=== PATIENT | female | born 1930 | race Caucasian/White ===

== ENCOUNTER 2016-08-31 09:33 | Inpatient (IN) | payer OTHER ==
[~2016-08-31] VITALS: Ht 167.6 cm; Wt 66.5 kg
[2016-08-31] VITALS (7 sets, daily range): BP systolic 100–130; BP diastolic 64–86; PULSE 84–92; TEMP 36.4–36.8; O2SAT 92–94; Ht 167.6 cm; Wt 66.5 kg
[~2016-08-31 09:33] MED LIST: ALBU1AER9 INH; ALEN70TA4 PO; ASPI81TA28 PO; LEVO100T7 PO; MECL1TAB42 PO; METO50TA17 PO; MULT-190 PO; SIMV20TA5 PO; TRIATAB3 PO
[2016-08-31] MEDS ORDERED: SODIUM CHLORIDE 0.9% 1000ML 500 ML IV STA (10:01)
[2016-08-31] MEDS ORDERED: ONDANSETRON INJ 2 MG/ML 2 ML VIAL IV STA (10:01)
[2016-08-31] MEDS ORDERED: OPTIRAY 320 IV PRN (10:15)
[2016-08-31] MEDS ORDERED: WARF-285 PO (10:15)
--- NOTE | 2016-08-31 10:25 | DIAGNOSTIC IMAGING REPORT ---
CHEST ONE VIEW PORTABLE HISTORY: Generalized abdominal pain. COMPARISON: Chest 01/14/2016. FINDINGS: Mild diffuse interstitial thickening persists. Small bilateral pleural effusions and bibasilar densities have progressed. The heart is mildly enlarged. This remains unchanged. No pneumothorax. IMPRESSION: 1. Progression of the small bilateral pleural effusions and nonspecific bibasilar densities. This could represent atelectasis or pneumonia. 2. Cardiomegaly with mild diffuse interstitial thickening. This could represent mild congestive change. Electronically signed by: Matthias Su M.D. 08/31/2016 10:23 AM Dictated Date/Time: 08/31/2016 10:22 AM
[2016-08-31 10:34] LABS: BASO % 0.5 %; BASO ABS # 0.02 K/uL (0-0.2); COMPLETE YES; EOS % 1.8 %; HEMATOCRIT 34.2 % (37-47); LYMPH % 39.1 %; LYMPH ABS # 1.72 K/uL (1.2-3.4); MEAN CELL VOLUME 100.3 fL (80-100); MEAN CORPUSCULAR HEMOGLOBIN 31.1 pg (25-34); MEAN PLATELET VOLUME 10.7 fL (7.4-10.4); MONO % 16.4 %; NEUT % 42.2 %; PLATELET COUNT 125 K/uL (130-400); RED BLOOD COUNT 3.41 M/uL (4.2-5.4)
[2016-08-31 11:00] LABS: URINE APPEARANCE CLEAR (CLEAR); URINE BILIRUBIN NEG (NEG); URINE COLOR YELLOW; URINE EPITHELIAL CELL AUTO >30 /lpf (0-5); URINE NITRITE NEG (NEG); URINE PH 7.5 (4.5-7.5); URINE SPECIFIC GRAVITY 1.014 (1.000-1.030); UROBILINOGEN NEG (NEG); ZZUR CULT IF INDIC CLEAN CATCH YES
[2016-08-31 11:01] LABS: BUN/CREATININE RATIO 22.3 (10-20); CALCIUM 8.7 mg/dl (8.5-10.1); CREATININE 0.8 mg/dl (0.60-1.20); POTASSIUM 3.9 mmol/L (3.5-5.1)
[2016-08-31 11:03] LABS: MANUAL MICROSCOPIC REQUIRED? NO; REVIEW REQ? NO; SULFASALICYLIC ACID POS (NEG)
[2016-08-31 11:04] LABS: ALB/GLOB RATIO 0.8 (0.9-2)
[2016-08-31 11:15] LABS: THYROID STIMULATING HORMONE 0.342 uIu/ml (0.300-4.500)
--- NOTE | 2016-08-31 12:49 | DIAGNOSTIC IMAGING REPORT ---
CT SCAN OF THE ABDOMEN AND PELVIS WITH IV CONTRAST CLINICAL HISTORY: Epigastric abdominal pain. Bloating. COMPARISON STUDY: Abdominal CT dated 06/26/2011. TECHNIQUE: Following the IV administration of 93 cc of Optiray 320, CT scan of the abdomen and pelvis is performed from the lung bases to the proximal femora. Images are reviewed in the axial, sagittal, and coronal planes. IV contrast was administered without complication. Automated dose control exposure was utilized. CT DOSE: 306.14 mGy.cm FINDINGS: Lung bases: The heart is mildly enlarged and without pericardial effusion. The coronary arteries are densely calcified. There are small pleural effusions, right larger than left with bibasilar consolidation. Intralobular septal thickening is noted in the lower lobes. Liver: The contrast-enhanced liver is normal in size and contour. The liver is heterogeneous in attenuation. There is mild central intrahepatic biliary ductal dilatation. The hepatic veins and portal veins are patent. Hepatic periportal edema is noted. Gallbladder: Surgically absent noting clips in the gallbladder fossa. Spleen: Spleen is normal in size and attenuation. There is trace chronic subcapsular fluid around the spleen, likely representing a chronic subcapsular hematoma. This measures at most of the 5 mm in thickness and was also present on the 2012 examination. Pancreas: Atrophic and grossly unremarkable. Adrenal glands: Unremarkable. Kidneys: The contrast enhanced kidneys are atrophic and without hydronephrosis. The kidneys enhance symmetrically. A 9 mm cyst is noted in the right lower pole. Abdominal vasculature: The abdominal aorta is normal in course and caliber noting moderate atherosclerotic calcification. Bowel: The small bowel and colon are normal in course and caliber. There is mild to moderate fecal retention seen in the right colon. The appendix is normal in appearance. Peritoneum: There is no intraperitoneal free air or abdominal ascites. There is a small fat-containing local hernia. Lymphadenopathy: None. Pelvic viscera: The bladder, uterus, and adnexa are normal as visualized. Skeletal structures: The skeletal structures are osteopenic. No lytic or blastic lesions are seen. IMPRESSION: 1. There are no acute infectious or inflammatory findings in the abdomen or pelvis. 2. Small pleural effusions, right larger than left with bibasilar consolidation. This likely represents atelectasis. Correlate clinically for evidence of superimposed pneumonia. 3. Mild cardiac enlargement. Intralobular septal thickening is seen in the lower lobes and suggests congestive failure. Clinical correlation will be required. 4. Trace chronic subcapsular splenic fluid is unchanged from 2012. This represents a tiny chronic subcapsular hematoma. 5. The liver appears heterogeneous and there is mild periportal edema, likely related to volume status. 6. Additional findings as above. Electronically signed by: Margarito Hsu M.D. 08/31/2016 12:47 PM Dictated Date/Time: 08/31/2016 12:37 PM
[2016-08-31] MEDS ORDERED: FUROSEMIDE 40 MG/4 ML VIAL IV STA (13:14)
--- NOTE | 2016-08-31 13:46 | EMERGENCY ROOM VISIT NOTE ---
History Report prepared by Dora: Issa Graham Under the Supervision of: Dr. Margarito Espitia M.D. First contact with patient: 09:53 Chief Complaint: URINARY SYMPTOMS Stated Complaint: PAIN IN UPPER ABDOMINAL, TROUBLE URINATING History of Present Illness The patient is an 85 year old female who presents to the Emergency Room with complaints of persistent abdominal bloating for the past week. The patient also notes discomfort in the lower abdomen but denies actual pain. The discomfort does not radiate to the back. She notes that she has been having trouble urinating and only urinates small volumes. The patient denies burning or pain with urination. She denies history of urinary retention. The patient also denies fevers, nausea, or vomiting. She has never been diagnosed with bowel obstruction and has never had surgery of the abdomen. She takes laxatives / stool softeners for constipation. The patient has been eating and drinking okay. The patient feels short of breath when she lays down. Source of History: patient Onset: one week ago Position: abdomen Quality: other (bloating) Timing: other (persistent) Associated Symptoms: + abdominal pain (discomfort), + urinary symptoms, No fevers, No nausea, No vomiting Review of Systems See HPI for pertinent positives & negatives. A total of 10 systems reviewed and were otherwise negative. Past Medical & Surgical Medical Problems: (1) AML (acute myeloid leukemia) in remission (2) Anxiety (3) Asthma, mild intermittent (4) Atrial fibrillation (5) CKD (chronic kidney disease), stage III (6) GERD (gastroesophageal reflux disease) (7) HLD (hyperlipidemia) (8) HTN (hypertension) (9) Hypothyroidism (10) Osteoporosis Surgical Problems: (1) History of cataract surgery (2) S/P cholecystectomy Family History FH: CAD (coronary artery disease) Social History Smoking Status: Never Smoker Alcohol Use: none Marital Status: Occupation Status: retired Current/Historical Medications Scheduled Levothyroxine Sodium (Levothyroxine Sodium), 100 MCG PO QAM Metoprolol Tartrate (Metoprolol Tartrate), 50 MG PO BID Ocuvite Preservision (Ocuvite Preservision), 1 TAB PO BID Simvastatin (Zocor), 20 MG PO QPM Triamterene/Hctz (Triamterene/Hctz 37.5-25MG), 1 TAB PO DAILY Warfarin Sodium (Warfarin Sodium), 3 MG PO UD Warfarin Sodium (Coumadin), 1.5 MG PO UD Allergies Coded Allergies: No Known Allergies (Verified , 08/31/16) Physical Exam Vital Signs Date Time Temp Pulse Resp B/P Pulse Ox O2 Delivery O2 Flow Rate FiO2 08/31/16 13:13 125/82 08/31/16 11:15 115/80 08/31/16 09:40 36.3 95 18 118/76 94 Room Air Physical Exam GENERAL: Patient is in no acute distress. HEENT: No acute trauma, normocephalic atraumatic, mucous membranes moist, no nasal congestion, no scleral icterus. NECK: No stridor, no adenopathy, no meningismus, trachea is midline. LUNGS: Crackles at both lung bases. No wheezing. No respiratory distress. HEART: Irregular rhythm, no murmurs, rate is normal. ABDOMEN: Soft, tender in the epigastrium, mildly distended, bowel sounds positive, no hernias, no peritonitis. No obvious bladder distention. EXTREMITIES: No cyanosis or edema, full range of motion of all the joints without pain or difficulty, no signs for acute trauma. NEUROLOGIC: Oriented x 3, no acute motor or sensory deficits, no focal weakness. SKIN: No rash, no jaundice, no diaphoresis. Medical Decision & Procedures ER Provider Diagnostic Interpretation: Bladder scan showed just over 80 CCs over fluid: No significant retention. X ray results and stated below per my interpretation and radiologist interpretation. Other radiology results and stated below per my review and radiologist interpretation: CHEST ONE VIEW PORTABLE HISTORY: Generalized abdominal pain. COMPARISON: Chest 01/14/2016. FINDINGS: Mild diffuse interstitial thickening persists. Small bilateral pleural effusions and bibasilar densities have progressed. The heart is mildly enlarged. This remains unchanged. No pneumothorax. IMPRESSION: 1. Progression of the small bilateral pleural effusions and nonspecific bibasilar densities. This could represent atelectasis or pneumonia. 2. Cardiomegaly with mild diffuse interstitial thickening. This could represent mild congestive change. Electronically signed by: Matthias Su M.D. 08/31/2016 10:23 AM Dictated Date/Time: 08/31/2016 10:[address] SCAN OF THE ABDOMEN AND PELVIS WITH IV CONTRAST CLINICAL HISTORY: Epigastric abdominal pain. Bloating. COMPARISON STUDY: Abdominal CT dated 06/26/2011. TECHNIQUE: Following the IV administration of 93 cc of Optiray 320, CT scan of the abdomen and pelvis is performed from the lung bases to the proximal femora. Images are reviewed in the axial, sagittal, and coronal planes. IV contrast was administered without complication. Automated dose control exposure was utilized. CT DOSE: 306.14 mGy.cm FINDINGS: Lung bases: The heart is mildly enlarged and without pericardial effusion. The coronary arteries are densely calcified. There are small pleural effusions, right larger than left with bibasilar consolidation. Intralobular septal thickening is noted in the lower lobes. Liver: The contrast-enhanced liver is normal in size and contour. The liver is heterogeneous in attenuation. There is mild central intrahepatic biliary ductal dilatation. The hepatic veins and portal veins are patent. Hepatic periportal edema is noted. Gallbladder: Surgically absent noting clips in the gallbladder fossa. Spleen: Spleen is normal in size and attenuation. There is trace chronic subcapsular fluid around the spleen, likely representing a chronic subcapsular hematoma. This measures at most of the 5 mm in thickness and was also present on the 2012 examination. Pancreas: Atrophic and grossly unremarkable. Adrenal glands: Unremarkable. Kidneys: The contrast enhanced kidneys are atrophic and without hydronephrosis. The kidneys enhance symmetrically. A 9 mm cyst is noted in the right lower pole. Abdominal vasculature: The abdominal aorta is normal in course and caliber noting moderate atherosclerotic calcification. Bowel: The small bowel and colon are normal in course and caliber. There is mild to moderate fecal retention seen in the right colon. The appendix is normal in appearance. Peritoneum: There is no intraperitoneal free air or abdominal ascites. There is a small fat-containing local hernia. Lymphadenopathy: None. Pelvic viscera: The bladder, uterus, and adnexa are normal as visualized. Skeletal structures: The skeletal structures are osteopenic. No lytic or blastic lesions are seen. IMPRESSION: 1. There are no acute infectious or inflammatory findings in the abdomen or pelvis. 2. Small pleural effusions, right larger than left with bibasilar consolidation. This likely represents atelectasis. Correlate clinically for evidence of superimposed pneumonia. 3. Mild cardiac enlargement. Intralobular septal thickening is seen in the lower lobes and suggests congestive failure. Clinical correlation will be required. 4. Trace chronic subcapsular splenic fluid is unchanged from 2012. This represents a tiny chronic subcapsular hematoma. 5. The liver appears heterogeneous and there is mild periportal edema, likely related to volume status. 6. Additional findings as above. Electronically signed by: Margarito Hsu M.D. 08/31/2016 12:47 PM Dictated Date/Time: 08/31/2016 12:37 PM Laboratory Results 08/31/16 10:18 Red Blood Count 3.41, Mean Corpuscular Volume 100.3, Mean Corpuscular Hemoglobin 31.1, Mean Corpuscular Hemoglobin Concent 31.0, Mean Platelet Volume 10.7, Neutrophils (%) (Auto) 42.2, Lymphocytes (%) (Auto) 39.1, Monocytes (%) ( Auto) 16.4, Eosinophils (%) (Auto) 1.8, Basophils (%) (Auto) 0.5, Neutrophils # (Auto) 1.86, Lymphocytes # (Auto) 1.72, Monocytes # (Auto) 0.72, Eosinophils # ( Auto) 0.08, Basophils # (Auto) 0.02 08/31/16 10:18 Test 08/31/16 10:18 White Blood Count 4.40 K/uL (4.8-10.8) Red Blood Count 3.41 M/uL (4.2-5.4) Hemoglobin 10.6 g/dL (12.0-16.0) Hematocrit 34.2 % (37-47) Mean Corpuscular Volume 100.3 fL (80-100) Mean Corpuscular Hemoglobin 31.1 pg (25-34) Mean Corpuscular Hemoglobin Concent 31.0 g/dl (32-36) Platelet Count 125 K/uL (130-400) Mean Platelet Volume 10.7 fL (7.4-10.4) Neutrophils (%) (Auto) 42.2 % Lymphocytes (%) (Auto) 39.1 % Monocytes (%) (Auto) 16.4 % Eosinophils (%) (Auto) 1.8 % Basophils (%) (Auto) 0.5 % Neutrophils # (Auto) 1.86 K/uL (1.4-6.5) Lymphocytes # (Auto) 1.72 K/uL (1.2-3.4) Monocytes # (Auto) 0.72 K/uL (0.11-0.59) Eosinophils # (Auto) 0.08 K/uL (0-0.5) Basophils # (Auto) 0.02 K/uL (0-0.2) RDW Standard Deviation 52.1 fL (36.4-46.3) RDW Coefficient of Variation 14.2 % (11.5-14.5) Immature Granulocyte % (Auto) 0.0 % Immature Granulocyte # (Auto) 0.00 K/uL (0.00-0.02) Prothrombin Time 21.9 SECONDS (9.0-12.0) Prothromb Time International Ratio 2.0 (0.9-1.1) Activated Partial Thromboplast Time 38.9 SECONDS (21.0-31.0) Partial Thromboplastin Ratio 1.5 Urine Color YELLOW Urine Appearance CLEAR (CLEAR) Urine pH 7.5 (4.5-7.5) Urine Specific Elkins 1.014 (1.000-1.030) Urine Protein TRACE (NEG) Urine Glucose (UA) NEG (NEG) Urine Ketones NEG (NEG) Urine Occult Blood NEG (NEG) Urine Nitrite NEG (NEG) Urine Bilirubin NEG (NEG) Urine Urobilinogen NEG (NEG) Urine Leukocyte Esterase LARGE (NEG) Urine WBC (Auto) 10-30 /hpf (0-5) Urine RBC (Auto) 0-4 /hpf (0-4) Urine Hyaline Casts (Auto) 1-5 /lpf (0-5) Urine Epithelial Cells (Auto) >30 /lpf (0-5) Urine Bacteria (Auto) NEG (NEG) Anion Gap 7.0 mmol/L (3-11) Est Creatinine Clear Calc Drug Dose 47.3 ml/min Estimated GFR () 76.8 Estimated GFR (Non- 66.3 BUN/Creatinine Ratio 22.3 (10-20) Calcium Level 8.7 mg/dl (8.5-10.1) Total Bilirubin 0.5 mg/dl (0.2-1) Aspartate Amino Transf (AST/SGOT) 20 U/L (15-37) Alanine Aminotransferase (ALT/SGPT) 18 U/L (12-78) Alkaline Phosphatase 88 U/L (45-117) Pro-B-Type Natriuretic Peptide 3078 pg/ml (0-1800) Total Protein 7.1 gm/dl (6.4-8.2) Albumin 3.1 gm/dl (3.4-5.0) Globulin 4.0 gm/dl (2.5-4.0) Albumin/Globulin Ratio 0.8 (0.9-2) Lipase 233 U/L (73-393) Thyroid Stimulating Hormone (TSH) 0.342 uIu/ml (0.300-4.500) Free Thyroxine 1.61 ng/dl (0.80-1.60) Laboratory results reviewed by me. Medications Administered Medications (Trade) Dose Ordered Sig/Deirdre Route Start Time Stop Time Status Last Admin Dose Admin Sodium Chloride (Nss 1000ml) 500 ml @ 999 mls/hr Q31M STAT IV 08/31/16 10:01 08/31/16 10:31 DC 08/31/16 10:27 999 MLS/HR Ondansetron HCl (Zofran Inj) 4 mg NOW STAT IV 08/31/16 10:01 08/31/16 10:04 DC 08/31/16 10:25 4 MG Furosemide (Lasix Inj) 20 mg NOW STAT IV 08/31/16 13:14 08/31/16 13:15 DC 08/31/16 14:09 20 MG ECG Indication: abdominal pain Rate (beats per minute): 84 Rhythm: atrial fibrillation Findings: nonspecific-ST abn, no acute ischemic change, no ectopy Comparison ECG Date: 2015 Change: no significant change ED Course 0958: The patient was evaluated in room B3b. A complete history and physical exam was performed. 1001: Zofran 4 mg IV, NSS 500 ml @ 999 mls/hr. 1020: Bladder scan was obtained. 1312: Updated the patient. She will get some Lasix. 1314: Lasix 20 mg IV. 1324: Discussed the case with KENZIE Holm, [facility] Hospitalist. The patient will be evaluated. Medical Decision Differential diagnosis includes urinary retention, UTI, diverticulitis, pancreatitis, appendicitis, biliary colic, pneumonia, constipation, bowel obstruction. There is no leukocytosis, in fact, the white count was slightly low-she has a history of the same. She is also mildly anemic by our testing. No significant electrolyte abnormality or kidney failure. There was no hepatitis. INR was elevated consistent with someone using Coumadin. Thyroid laboratories are consistent with someone using thyroid medication. Bladder scan did not show any significant urinary retention. Urinalysis shows contamination, no obvious infection. Urine culture is pending. Chest film shows bilateral lower lung congestion and what appears to be CHF. No free air or pneumothorax noted. BNP is elevated consistent with fluid overload/CHF. EKG shows A. fib, no acute ischemia. Cardiac enzyme testing times one is not consistent with acute cardiac injury. Abdominal and pelvis CT shows evidence for fluid overload, there was no evidence for bowel obstruction or for any acute surgical process. The patient initially received a small amount of IV saline. With the findings of CHF, she was given IV Lasix. She received IV Zofran for nausea. The patient presents with bloating and difficulty with urination. She feels short of breath to lie down. She appears to be in new onset CHF. Laboratories and imaging suggests heart failure. I did speak with the patient and case management. I talked to the on-call hospitalist. Further workup/admission/observation is warranted. Consults Time Called: 1315 Consulting Phys[facility] Returned Call: [phone]: Discussed the case with KENZIE Holm [facility] The patient will be evaluated. Impression Primary Impression: CHF (congestive heart failure) Additional Impressions: SOB (shortness of breath) Abdominal distension Scribe Attestation The scribe's documentation has been prepared under my direction and personally reviewed by me in its entirety. I confirm that the note above accurately reflects all work, treatment, procedures, and medical decision making performed by me. Departure Information Dispostion Being Evaluated By Hospitalist Referrals Marino Vizcaino M.D. (PCP) Patient Instructions My [facility] Problem Qualifiers
[2016-08-31 14:07] LABS: PARTIAL THROMBOPLASTIN RATIO 1.5; PROTHROMBIN TIME (PATIENT) 21.9 SECONDS (9.0-12.0)
[2016-08-31] MEDS ORDERED: NITROGLYCERIN 0.4 MG SL PER TAB CHARGE SL PRN (14:15)
[2016-08-31] MEDS ORDERED: ONDANSETRON INJ 2 MG/ML 2 ML VIAL IV PRN (14:15)
[2016-08-31] MEDS ORDERED: TRIATAB3 PO (14:21)
[2016-08-31] MEDS ORDERED: WARF5TAB90 PO (14:21)
[2016-08-31] MEDS ORDERED: SIMV40TA4 PO (14:21)
[2016-08-31] MEDS ORDERED: METOPROLOL TARTRATE 50 MG TAB PO ONE (16:00)
[2016-08-31] MEDS: WARFARIN SOD 3 MG TAB PO SCH (16:59)
--- NOTE | 2016-08-31 17:36 | History and Physical ---
History & Physical Date & Time of Service: Aug 31, 2016 ~ 14:00 Chief Complaint: Abdominal Distention, Trouble Urinating, Shortness of Breath Primary Care Physician: Marino Vizcaino M.D. History of Present Illness 85 year old female who presents to the ER with abdominal distention, trouble urination, and shortness of breath. Patient reports her symptoms started about one week ago. She reports increasing abdominal distention, lower extremity edema , and shortness of breath. She reports orthopnea. Feels like the shortness of breath is coming from her abdomen pushing up into her chest. She has chronic lower extremity edema which she feels is a little worse than normal. No chest pain or palpitations. She denies lightheadedness, dizziness, diaphoresis, and syncope. No cough or sputum production. She reports difficulty urinating. She feels like she needs to go often however is only dribbling. She denies dysuria. No fever or chills. She denies abdominal pain, nausea, vomiting, or diarrhea. In the ER, patient's vitals are stable. In the ER, CXR shows small BL pleural effusions and mild congestive change. CT abd/pelvis did not show any acute abdominal findings but did show the effusions and congestion noted on CXR. Patient was given Lasix 20mg IV. 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 (2) Anxiety Status: Chronic (3) Asthma, mild intermittent Status: Chronic (4) Atrial fibrillation Status: Chronic (5) CKD (chronic kidney disease), stage III Status: Chronic (6) GERD (gastroesophageal reflux disease) Status: Chronic (7) HLD (hyperlipidemia) Status: Chronic (8) HTN (hypertension) Status: Chronic (9) Hypothyroidism Status: Chronic (10) Osteoporosis Status: Chronic Surgical Problems: (1) History of cataract surgery Status: Chronic (2) S/P cholecystectomy Status: Chronic Family History non contributory due to patient's advanced age Social History Smoking Status: Never Smoker Alcohol Use: none Immunizations History of Influenza Vaccine: Yes Influenza Vaccine Date: Mar 16, 2016 History of Tetanus Vaccine?: Yes Tetanus Immunization Date: Apr 01, 2011 History of Pneumococcal: Yes Pneumococcal Date: Jan 10, 2015 Multi-Drug Resistant Organisms History of MDRO: No Allergies Coded Allergies: No Known Allergies (Verified , 08/31/16) Home Medications Scheduled Levothyroxine Sodium (Levothyroxine Sodium), 100 MCG PO QAM Metoprolol Tartrate (Metoprolol Tartrate), 50 MG PO BID Ocuvite Preservision (Ocuvite Preservision), 1 TAB PO BID Simvastatin (Zocor), 20 MG PO QPM Triamterene/Hctz (Triamterene/Hctz 37.5-25MG), 1 TAB PO DAILY Warfarin Sodium (Warfarin Sodium), 3 MG PO UD Warfarin Sodium (Coumadin), 1.5 MG PO UD Review of Systems 10 point review of systems was completed with the pertinent positives and negatives noted per the HPI Physical Exam Vital Signs Date Time Temp Pulse Resp B/P Pulse Ox O2 Delivery O2 Flow Rate FiO2 08/31/16 15:10 126/74 08/31/16 14:10 123/75 08/31/16 13:13 125/82 08/31/16 11:15 115/80 08/31/16 09:40 36.3 95 18 118/76 94 Room Air General Appearance: + mild distress (dyspnea with minimal exertion ) Head: normocephalic Eyes: normal inspection ENT: hearing grossly normal Neck: supple, no JVD Respiratory/Chest: no respiratory distress, + crackles (right base) Cardiovascular: + irregularly irregular (rate controlled), + pertinent finding (trace edema BLLE ) Abdomen/GI: normal bowel sounds, non tender, soft, + distended Extremities/Musculoskelatal: normal inspection, no calf tenderness Neurologic/Psych: no motor/sensory deficits, alert, normal mood/affect, oriented x 3 Skin: normal color, warm/dry Diagnostics Laboratory Results Results Past 24 Hours Test 08/31/16 10:18 08/31/16 16:00 Range/Units White Blood Count 4.40 4.8-10.8 K/uL Red Blood Count 3.41 4.2-5.4 M/uL Hemoglobin 10.6 12.0-16.0 g/dL Hematocrit 34.2 37-47 % Mean Corpuscular Volume 100.3 80-100 fL Mean Corpuscular Hemoglobin 31.1 25-34 pg Mean Corpuscular Hemoglobin Concent 31.0 32-36 g/dl Platelet Count 125 130-400 K/uL Mean Platelet Volume 10.7 7.4-10.4 fL Neutrophils (%) (Auto) 42.2 % Lymphocytes (%) (Auto) 39.1 % Monocytes (%) (Auto) 16.4 % Eosinophils (%) (Auto) 1.8 % Basophils (%) (Auto) 0.5 % Neutrophils # (Auto) 1.86 1.4-6.5 K/uL Lymphocytes # (Auto) 1.72 1.2-3.4 K/uL Monocytes # (Auto) 0.72 0.11-0.59 K/uL Eosinophils # (Auto) 0.08 0-0.5 K/uL Basophils # (Auto) 0.02 0-0.2 K/uL RDW Standard Deviation 52.1 36.4-46.3 fL RDW Coefficient of Variation 14.2 11.5-14.5 % Immature Granulocyte % (Auto) 0.0 % Immature Granulocyte # (Auto) 0.00 0.00-0.02 K/uL Prothrombin Time 21.9 9.0-12.0 SECONDS Prothromb Time International Ratio 2.0 0.9-1.1 Activated Partial Thromboplast Time 38.9 21.0-31.0 SECONDS Partial Thromboplastin Ratio 1.5 Urine Color YELLOW Urine Appearance CLEAR CLEAR Urine pH 7.5 4.5-7.5 Urine Specific [place] 1.014 1.000-1.030 Urine Protein TRACE NEG Urine Glucose (UA) NEG NEG Urine Ketones NEG NEG Urine Occult Blood NEG NEG Urine Nitrite NEG NEG Urine Bilirubin NEG NEG Urine Urobilinogen NEG NEG Urine Leukocyte Esterase LARGE NEG Urine WBC (Auto) 10-30 0-5 /hpf Urine RBC (Auto) 0-4 0-4 /hpf Urine Hyaline Casts (Auto) 1-5 0-5 /lpf Urine Epithelial Cells (Auto) >30 0-5 /lpf Urine Bacteria (Auto) NEG NEG Sodium Level 144 136-145 mmol/L Potassium Level 3.9 3.5-5.1 mmol/L Chloride Level 108 98-107 mmol/L Carbon Dioxide Level 29 21-32 mmol/L Anion Gap 7.0 3-11 mmol/L Blood Urea Nitrogen 18 7-18 mg/dl Creatinine 0.80 0.60-1.20 mg/dl Est Creatinine Clear Calc Drug Dose 47.3 ml/min Estimated GFR () 76.8 Estimated GFR (Non- 66.3 BUN/Creatinine Ratio 22.3 10-20 Random Glucose 104 70-99 mg/dl Calcium Level 8.7 8.5-10.1 mg/dl Total Bilirubin 0.5 0.2-1 mg/dl Aspartate Amino Transf (AST/SGOT) 20 15-37 U/L Alanine Aminotransferase (ALT/SGPT) 18 12-78 U/L Alkaline Phosphatase 88 45-117 U/L Troponin I < 0.015 0-0.045 ng/ml Pro-B-Type Natriuretic Peptide 3078 0-1800 pg/ml Total Protein 7.1 6.4-8.2 gm/dl Albumin 3.1 3.4-5.0 gm/dl Globulin 4.0 2.5-4.0 gm/dl Albumin/Globulin Ratio 0.8 0.9-2 Lipase 233 73-393 U/L Thyroid Stimulating Hormone (TSH) 0.342 0.300-4.500 uIu/ml Free Thyroxine 1.61 0.80-1.60 ng/dl Microbiology Results 08/31/16 Urine Culture, Received Pending Diagnostic Radiology CXR IMPRESSION: 1. Progression of the small bilateral pleural effusions and nonspecific bibasilar densities. This could represent atelectasis or pneumonia. 2. Cardiomegaly with mild diffuse interstitial thickening. This could represent mild congestive change. CT ABD/PELVIS IMPRESSION: 1. There are no acute infectious or inflammatory findings in the abdomen or pelvis. 2. Small pleural effusions, right larger than left with bibasilar consolidation. This likely represents atelectasis. Correlate clinically for evidence of superimposed pneumonia. 3. Mild cardiac enlargement. Intralobular septal thickening is seen in the lower lobes and suggests congestive failure. Clinical correlation will be required. 4. Trace chronic subcapsular splenic fluid is unchanged from 2012. This represents a tiny chronic subcapsular hematoma. 5. The liver appears heterogeneous and there is mild periportal edema, likely related to volume status. 6. Additional findings as above. Impression Assessment and Plan SHORTNESS OF BREATH, VOLUME OVERLOAD, ACUTE CHF - admit to tele - patient presenting with increasing abdominal distention, lower extremity edema , shortness of breath, and difficulty urinating; CXR and CT abd/pelvis showing small BL pleural effusions and congestive failure, ? pneumonia however patient without cough, fever, or leukocytosis; CT negative for acute abdominal findings - saturating well on room air - hx of atrial fibrillation - rate controlled, no reports of chest pain or palpitations - echo 01/2016 - EF 50-55%, moderate MR, mild-mod TR - EKG without acute ST changes, initial troponin negative; continue to cycle cardiac enzymes, check resting echo - s/p Lasix 20mg IV in ED; will reevaluate patient tonight and order further diuresis as appropriate - I/Os, daily standing weights, low Na+ diet DIFFICULTY URINATING - patient reports urinary frequency and dribbling - PVR in ER ~ 80ml so no retention - U/A not highly suggestive of UTI - continue to monitor - consider urology consult ATRIAL FIBRILLATION - rate controlled on beta lei, will continue - on Coumadin, INR 2.0; continue Coumadin per home dosing HTN - BP controlled, continue metoprolol - was on Maxzide however patient reports she quit taking on her own - unsure of when; consider resumption pending plan for diuretics and BP CKD STAGE III - baseline creat ~ 0.9 - creat noted to be 0.8 today - monitor closely with diuresis DVT PROPHYLAXIS - on Coumadin with therapeutic INR CODE STATUS - Patient is a full code as per my discussion with her. DISPO - In my clinical judgment this beneficiary meets acute admission criteria, established by [facility], that includes being hospitalized through two midnights. VTE Prophylaxis VTE Risk Assessment Done? Y/N: Yes Risk Level: Moderate Given or contraindicated: Warfarin (Coumadin) Note ATTENDING ADDENDUM Record reviewed. Patient interviewed and examined. Care coordinated with KENZIE Holm. Please refer to her documentation for patient's history. Briefly, 85 YO female with history of chronic atrial fibrillation managed with rate control and warfarin, hypertension, and other problems. Presented to ED with increasing dyspnea on exertion and abdominal bloating. No chest pain. EXAM: General- no distress VS- as noted HEENT- PERRL, EOMI, anicteric Neck- + JVD Lungs- few bibasilar rales Heart- distant heart sounds, irregular, rate controlled, no definite murmur or gallop appreciated Abdomen- + BS, slightly distended, soft, nontender Extremities- 1+ pretibial edema Neuro- alert, oriented DATA: Troponin I < 0.015. BNP 3078. Other lab studies as noted. Chest x-ray reviewed by undersigned and interpreted by Radiology- cardiomegaly, pulmonary vascular congestion, small pleural effusions. CT abdomen + pelvis per Radiology- no ascites; no acute intra-abdominal process. EKG performed at 10:37 reviewed and demonstrated AF at 84 / minute, low voltage QRS, poor R-wave progression, inferior T-wave flattening, biphasic T-waves V2-3 , minimal ST depression V3-V5. ASSESSMENT AND PLAN: CHF Apparent new onset CHF per exam, BNP, chest filmes. Cardiovascular history notable for chronic AF and hypertension. Echo 11/14/15 demonstrated normal LV wall motion and function with LVEF 55-60%, aortic sclerosis without stenosis, moderate MR. Received IV furosemide in ED with brisk diuresis. Follow exam, weights, labs. Titrate diuretics. Check f/u TTE. Consult Cardiology. Please refer to CLEVE Huang's documentation for discussion of other issues. Zechariah Benson MD .
[2016-08-31] MEDS: ACETAMINOPHEN 325 MG TAB PO PRN (19:48)
[2016-08-31] MEDS: CEROVITE ADV FORMULA TAB PO SCH (20:54)
[2016-08-31] MEDS: METOPROLOL TARTRATE 50 MG TAB PO SCH (20:55)
[2016-09-01] VITALS (8 sets, daily range): BP systolic 110–126; BP diastolic 68–80; PULSE 72–88; TEMP 36.8–36.9; O2SAT 0–94
[2016-09-01] MEDS: LEVOTHYROXINE 100 MCG TAB PO SCH (05:59)
[2016-09-01 07:20] LABS: HEMATOCRIT 30.6 % (37-47); MEAN CELL VOLUME 97.5 fL (80-100); MEAN CORPUSCULAR HEMOGLOBIN 30.9 pg (25-34); MEAN CORPUSCULAR HGB CONC 31.7 g/dl (32-36); MEAN PLATELET VOLUME 10.9 fL (7.4-10.4); PLATELET COUNT 117 K/uL (130-400); RED BLOOD COUNT 3.14 M/uL (4.2-5.4); WHITE BLOOD COUNT 4.42 K/uL (4.8-10.8)
[2016-09-01 07:31] LABS: INR 2.2 (0.9-1.1); PROTHROMBIN TIME (PATIENT) 23.8 SECONDS (9.0-12.0)
[2016-09-01 07:47] LABS: BUN/CREATININE RATIO 18.3 (10-20); CALCIUM 8.9 mg/dl (8.5-10.1); CREATININE 0.88 mg/dl (0.60-1.20); POTASSIUM 3.9 mmol/L (3.5-5.1)
[2016-09-01] MEDS: METOPROLOL TARTRATE 50 MG TAB PO SCH ×2 (08:03→20:44)
[2016-09-01] MEDS: CEROVITE ADV FORMULA TAB PO SCH ×2 (08:03→20:44)
--- NOTE | 2016-09-01 09:29 | Clinical Documentation Query ---
CLINICAL DOCUMENTATION QUERY In your clinical opinion is this patient being managed for: ( X ) Acute diastolic (Preserved EF) CHF treated with IV Lasix ( ) Other explanation of clinical findings (Please Explain) ( ) Unable to determine (Please Define) ( ) Need to Discuss ( ) Not Agree The medical record reflects the following clinical findings, treatment, and risk factors. Clinical Indicators: SOB, crackles to right base, cardiomegaly, and an Echo (11/14/15) showing LVEF of 55-60% with aortic sclerosis and moderate mitral regurgitation. Treatment: IV Lasix, telemetry, I/O's, daily weights, cardiology consult, Echo, Risk Factors: Age, AFIB, CKD, HTN, Please clarify and document your clinical opinion in the progress notes and discharge summary. Terms such as "probable", "suspected", "likely", "questionable", "possible", or "still to be ruled out" are acceptable. IF IN AGREEMENT, YOU MUST DOCUMENT ABOVE DIAGNOSTIC STATEMENT IN DAILY PROGRESS NOTES AND DISCHARGE SUMMARY. This document is not part of the patient's record. Thank You, Danie Mccrary, RN [phone]
--- NOTE | 2016-09-01 10:38 | Cardiology Consultation ---
Cardiology Consultation Date of Consultation: Sep 01, 2016 Requesting Physician: Lorne Attending Installer Apprentice: Jean-Pierre (Marino Basilio PA-C) History of Present Illness Ms. Sarmiento is a very pleasant 85 year old female seen at the request of Dr. Benson. Reason for consultation is new onset congestive heart failure. Ms. Sarmiento states that she presented to the ER "because I couldn't pee, last week, all week." She describes a mild nonproductive cough without fevers or chills, abdominal bloating, "something pushing up on my chest when I laid down, " increased shortness of breath, orthopnea, PND, and mildly increased lower extremity peripheral edema. She describes her symptoms as "similar to a kidney infection years ago when I had to doctor with Dr. Gary." She denies chest pain. Denies palpitations. Denies lightheadedness, dizziness, near syncope, or syncope. Notes having a longstanding history of heart murmur, without prior history of congestive heart failure, rheumatic fever, of scarlet fever. It should be noted that the patient self discontinued Maxzide at an unknown time "because I don't like taking medications." In the ER she was evaluated by Dr. Espitia and initially given IVF's and Zofran for nausea. After review of the labs and imaging the IV saline was discontinued and she was given 20 mg of IV furosemide. (Marino Basilio PA-C) History Past Medical/Surgical History Chronic atrial fibrillation Chronic Coumadin anticoagulation Mitral regurgitation Preserved left ventricular systolic function. Hypertension Dyslipidemia Stage III chronic kidney disease History of acute myeloid leukemia (AML), treated at [facility] in 2002 Hypothyroidism Chart history of mild asthma. History of lower urinary tract infection Generalized anxiety disorder GERD Dysphagia Chronic constipation Osteoporosis Cataract surgery Macular degeneration, left eye Glaucoma Cholecystectomy Lumbar spine injection Family History: Mother with a CVA at 84. She had CAD. Father with an VT at 58. Brother Zechariah with an VT at 34. Brother Neo with cancer, unknown primary. A third brother had COPD and CAD. One sister, alive with COPD. Social History: Nonsmoker. No alcohol. No illegal drug use. . Five children. Retired, previously working at [employer], [employer], and [employer]. (Marino Basilio PA-C) Review Of Systems General: No weight change. Denies fever or chills. No night sweats. HEENT: No headaches. Cardiovascular: No chest pain. No tachypalpitations., No syncope. Pulmonary: + Cough. No pleuritic chest pain. No wheeze. No hemoptysis. Gastrointestinal: Denies nausea, vomiting, or diarrhea. Skin: No rash. Musculoskeletal: Arthritis. Neurological: Denies history of TIA, CVA, or seizures Complete review of systems is as stated above, negative, or noncontributory. (Marino Basilio PA-C) Allergies Coded Allergies: No Known Allergies (Verified , 08/31/16) Medications Reported Home Medications Medications Dose Route/Sig Max Daily Dose Days Date Category Dose Instructions Triamterene/Hctz 37.5-25MG (Triamterene/HCTZ) 1 Tab Tab 1 Tab PO DAILY 30 08/31/16 Reported patient not taking Zocor (Simvastatin) 40 Mg Tab 20 Mg PO QPM 08/31/16 Reported patient not taking Coumadin (Warfarin Sodium) 5 Mg Tab 1.5 Mg PO UD 08/31/16 Reported fridays Warfarin Sodium 3 Mg Tab 3 Mg PO UD 08/31/16 Reported all days except wednesday Metoprolol Tartrate 50 Mg Tab 50 Mg PO BID 01/14/16 Rx Levothyroxine Sodium 100 Mcg Tab 100 Mcg PO QAM 01/14/16 Reported Ocuvite Preservision (Multivitamins/Minerals) 1 Tab Tab 1 Tab PO BID 05/18/14 Reported (Marino Basilio PA-C) Physical Exam Vital Signs (Last 8hrs): Last 8 Hrs Date Time Temp Pulse Resp B/P Pulse Ox O2 Delivery O2 Flow Rate FiO2 09/01/16 08:01 36.8 75 16 121/75 92 Room Air 09/01/16 08:00 0 Room Air 09/01/16 04:02 Room Air 09/01/16 03:09 36.9 82 17 126/80 93 Room Air General Appearance: Alert and Oriented x3. NAD. [place] Head: Normocephalic Atraumatic. Eyes: PER, EOMI, Conjunctiva and sclera clear Neck: 5-6 cm of JVD. + HJR. No carotid bruits. Respiratory: Diminished, decreased throughout. Faint bibasilar rales. No wheeze. No rhonchi. Cardiovascular: Irregularly irregular around 100 bpm. There is a soft systolic murmur heart at the apex and left lower sternal border. No diastolic murmur. No rub. PMI nonpalpable. Abdomen: +BS. No abdominal bruits. Soft. Somewhat distended. +HJR. Extremities: Minimal edema. Lymphedematous changes. No clubbing. No cyanosis. Distal pulses 1/4 bilaterally. Neuro: No focal deficits. Psychiatric: Normal affect. (Marino Basilio, JANETH) Data Last 24 Hours Test 08/31/16 10:18 08/31/16 16:00 08/31/16 16:05 08/31/16 21:53 White Blood Count 4.40 K/uL Red Blood Count 3.41 M/uL Hemoglobin 10.6 g/dL Hematocrit 34.2 % Mean Corpuscular Volume 100.3 fL Mean Corpuscular Hemoglobin 31.1 pg Mean Corpuscular Hemoglobin Concent 31.0 g/dl Platelet Count 125 K/uL Mean Platelet Volume 10.7 fL Neutrophils (%) (Auto) 42.2 % Lymphocytes (%) (Auto) 39.1 % Monocytes (%) (Auto) 16.4 % Eosinophils (%) (Auto) 1.8 % Basophils (%) (Auto) 0.5 % Neutrophils # (Auto) 1.86 K/uL Lymphocytes # (Auto) 1.72 K/uL Monocytes # (Auto) 0.72 K/uL Eosinophils # (Auto) 0.08 K/uL Basophils # (Auto) 0.02 K/uL RDW Standard Deviation 52.1 fL RDW Coefficient of Variation 14.2 % Immature Granulocyte % (Auto) 0.0 % Immature Granulocyte # (Auto) 0.00 K/uL Prothrombin Time 21.9 SECONDS Prothromb Time International Ratio 2.0 Activated Partial Thromboplast Time 38.9 SECONDS Partial Thromboplastin Ratio 1.5 Urine Color YELLOW Urine Appearance CLEAR Urine pH 7.5 Urine Specific [place] 1.014 Urine Protein TRACE Urine Glucose (UA) NEG Urine Ketones NEG Urine Occult Blood NEG Urine Nitrite NEG Urine Bilirubin NEG Urine Urobilinogen NEG Urine Leukocyte Esterase LARGE Urine WBC (Auto) 10-30 /hpf Urine RBC (Auto) 0-4 /hpf Urine Hyaline Casts (Auto) 1-5 /lpf Urine Epithelial Cells (Auto) >30 /lpf Urine Bacteria (Auto) NEG Sodium Level 144 mmol/L Potassium Level 3.9 mmol/L Chloride Level 108 mmol/L Carbon Dioxide Level 29 mmol/L Anion Gap 7.0 mmol/L Blood Urea Nitrogen 18 mg/dl Creatinine 0.80 mg/dl Est Creatinine Clear Calc Drug Dose 47.3 ml/min Estimated GFR () 76.8 Estimated GFR (Non- 66.3 BUN/Creatinine Ratio 22.3 Random Glucose 104 mg/dl Calcium Level 8.7 mg/dl Total Bilirubin 0.5 mg/dl Aspartate Amino Transf (AST/SGOT) 20 U/L Alanine Aminotransferase (ALT/SGPT) 18 U/L Alkaline Phosphatase 88 U/L Troponin I < 0.015 ng/ml < 0.015 ng/ml 0.029 ng/ml Pro-B-Type Natriuretic Peptide 3078 pg/ml Total Protein 7.1 gm/dl Albumin 3.1 gm/dl Globulin 4.0 gm/dl Albumin/Globulin Ratio 0.8 Lipase 233 U/L Thyroid Stimulating Hormone (TSH) 0.342 uIu/ml Free Thyroxine 1.61 ng/dl Creatine Kinase MB Ratio Creatine Kinase MB 1.5 ng/ml 1.5 ng/ml Test 08/31/16 22:00 09/01/16 06:55 Creatine Kinase MB Ratio White Blood Count 4.42 K/uL Red Blood Count 3.14 M/uL Hemoglobin 9.7 g/dL Hematocrit 30.6 % Mean Corpuscular Volume 97.5 fL Mean Corpuscular Hemoglobin 30.9 pg Mean Corpuscular Hemoglobin Concent 31.7 g/dl RDW Standard Deviation 49.9 fL RDW Coefficient of Variation 14.0 % Platelet Count 117 K/uL Mean Platelet Volume 10.9 fL Prothrombin Time 23.8 SECONDS Prothromb Time International Ratio 2.2 Sodium Level 142 mmol/L Potassium Level 3.9 mmol/L Chloride Level 105 mmol/L Carbon Dioxide Level 29 mmol/L Anion Gap 8.0 mmol/L Blood Urea Nitrogen 16 mg/dl Creatinine 0.88 mg/dl Est Creatinine Clear Calc Drug Dose 42.1 ml/min Estimated GFR () 68.5 Estimated GFR (Non- 59.1 BUN/Creatinine Ratio 18.3 Random Glucose 83 mg/dl Calcium Level 8.9 mg/dl Admission CXR and Abdomen/Pelvis CT reviewed. EKG dated and timed 31-AUG-2016 10:37:11: Atrial fibrillation at 84 bpm. Low voltage QRS. Cannot rule out Anterior infarct, age undetermined. Nonspecific T wave abnormality. EKG dated and timed 01-SEP-2016 06:20:05: Atrial fibrillation at 86 bpm. Low voltage QRS. Nonspecific T wave abnormality Telemetry: Atrial fibrillation currently at 100 to 110 bpm. Overall, the ventricular response to her chronic atrial fibrillation appears to be relatively well controlled. Occasional PVC in singles. No significant bradycardia or pauses. (Marino Basilio PA-C) Assessment & Plan Presentation due to difficultly urinating with history and physical examination findings demonstrating new onset acute decompensated congestive heart failure currently felt to be secondary to prior self discontinuation of diuretic therapy in the setting of chronic atrial fibrillation, diastolic dysfunction, and valvular heart disease - moderate mitral regurgitation observed in October 2015. RECOMMENDATIONS/PLAN: Resting echocardiography to assess mitral valve status and to evaluate for left ventricular systolic dysfunction No Maxzide. IV furosemide, eventually transitioning to oral furosemide Strict I/Os, daily weights on the same standing scale, low sodium diet. Continue rate control with metoprolol tartrate and anticoagulation with Coumadin. Further recommendations pending the above, evaluation by Dr. Morejon, and her ongoing hospitalization. (Marino Basilio PA-C) Cardiology attending: Pt seen and examined, agree with findings and assessment as per Marino Ambrose. Pt does examine as volume overloaded. Diuresed 1 L with only 20mg of lasix, will cont. Echo shows diastolic dysfunction with preserved LV systolic function and no significant worsening of valvular disease. Cont with strict I/O's and daily weights. (Carlos Morejon D.OAjith)
[2016-09-01] MEDS: ACETAMINOPHEN 325 MG TAB PO PRN (10:54)
[2016-09-01] MEDS ORDERED: FUROSEMIDE INJ 20 MG in SYRINGE 0 ML IV ONE (11:00)
[2016-09-01] MEDS ORDERED: POTASSIUM CHLORIDE 10 MEQ TABCR PO ONE (11:00)
--- NOTE | 2016-09-01 14:36 | ECHOCARDIOGRAM REPORT ---
*NOTICE TO RECEIVING [employer] [employer] This information is strictly Confidential and protected under [place] law. [place] law prohibits you from making any further disclosure of this information unless further disclosure is expressly permitted by the written consent of the person to whom it pertains or is authorized by law. A general authorization for the release of medical or other information is not sufficient for this purpose. Hospital accepts no responsibility if the information is made available to any other person, INCLUDING THE PATIENT. Interpretation Summary * Name: CHRISTIANO VARGAS Study Date: 09/01/2016 11:00 AM BP: 121/75 mmHg * Patient Location: .2T\S\S239\S\1 HR: 75 * : 1930 (M/d/yyy) Gender: Female Height: 66 in * Age: 85 yrs Ethnicity: [place] Weight: 148 lb * Ordering Physician: Marino Basilio * Referring Physician: Self, Referred * Performed By: Leonor Starks RDCS * * Reason For Study: CHF, ASSESS MR * BSA: 1.8 m2 * -- Conclusions -- * Normal LV chamber size and wall thickness. * Normal LV systolic function, EF 55-60%. * No segmental left ventricular wall motion abnormalities are noted. * Left atrial enlargement suggesting diastolic dysfunction. * Moderate mitral regurgitation. * Moderate tricuspid regurgitation. * Moderate left atrial enlargement. * Mild right atrial enlargement. Procedure Details * A complete two-dimensional transthoracic echocardiogram was performed (2D, M-mode, Doppler and color flow Doppler). Left Ventricle * The left ventricle is normal in size. * There is normal left ventricular wall thickness. * Ejection Fraction = 55-60%. * Left ventricular systolic function is normal. * No segmental left ventricular wall motion abnormalities are noted. * The left ventricular wall motion is normal. Right Ventricle * The right ventricular cavity size is normal (basal dimension <4.2 cm in right ventricular apical 4-chamber view). * The right ventricular systolic function is normal as assessed by tricuspid annular plane systolic excursion (TAPSE) (normal >1.5 cm). Atria * The left atrium is moderately dilated. * The right atrium is mildly dilated. * No ASD detected; PFO is not assessed. Mitral Valve * The mitral valve anatomy is normal. * There is no mitral valve stenosis. * There is moderate mitral regurgitation. Tricuspid Valve * The tricuspid valve anatomy is normal. * There is no tricuspid stenosis. * There is moderate tricuspid regurgitation. Aortic Valve * The aortic valve is normal in structure and function. Pulmonic Valve * The pulmonary valve is not well seen, but the Doppler examination is normal without significant regurgitation or stenosis. Great Vessels * The aortic root is normal size. Pericardium/Pleural * There is no pericardial effusion. Left Ventricular Diastolic Function * Pulse wave TDI of the anterior and posterior mitral annulas demonstrates abnormal LV relaxation MMode 2D Measurements and Calculations IVSd 0.88 cm IVSs 1.2 cm LVIDd 4.2 cm LVIDs 3.0 cm LVPWd 1.3 cm LVPWs 1.2 cm IVS/LVPW 0.66 FS 27.4 % EDV(Teich) 77.1 ml ESV(Teich) 35.7 ml EF(Teich) 53.7 % EDV(cubed) 72.3 ml ESV(cubed) 27.6 ml EF(cubed) 61.8 % % IVS thick 34.3 % % LVPW thick -6.05 % LV mass(C)d 155.1 grams LV mass(C)dI 88.1 grams/m\S\2 LV mass(C)s 112.0 grams LV mass(C)sI 63.6 grams/m\S\2 SV(Teich) 41.4 ml SI(Teich) 23.5 ml/m\S\2 SV(cubed) 44.6 ml SI(cubed) 25.4 ml/m\S\2 Ao root diam 2.9 cm Ao root area 6.6 cm\S\2 LA dimension 3.9 cm LA/Ao 1.3 LVAd ap4 21.0 cm\S\2 LVLd ap4 7.0 cm EDV(MOD-sp4) 51.4 ml EDV(sp4-el) 53.3 ml LVAs ap4 13.4 cm\S\2 LVLs ap4 5.7 cm ESV(MOD-sp4) 28.1 ml ESV(sp4-el) 26.8 ml EF(MOD-sp4) 45.3 % EF(sp4-el) 49.8 % LVAd ap2 24.6 cm\S\2 LVLd ap2 7.4 cm EDV(MOD-sp2) 69.7 ml EDV(sp2-el) 69.2 ml LVAs ap2 16.1 cm\S\2 LVLs ap2 6.4 cm ESV(MOD-sp2) 36.9 ml ESV(sp2-el) 34.2 ml EF(MOD-sp2) 47.1 % EF(sp2-el) 50.6 % LVLd %diff 5.8 % EDV(MOD-bp) 61.2 ml LVLs %diff 11.2 % ESV(MOD-bp) 34.0 ml EF(MOD-bp) 44.4 % SV(MOD-sp4) 23.3 ml SI(MOD-sp4) 13.2 ml/m\S\2 SV(MOD-sp2) 32.8 ml SI(MOD-sp2) 18.6 ml/m\S\2 SV(MOD-bp) 27.2 ml SI(MOD-bp) 15.4 ml/m\S\2 SV(sp4-el) 26.5 ml SI(sp4-el) 15.1 ml/m\S\2 SV(sp2-el) 35.0 ml SI(sp2-el) 19.9 ml/m\S\2 Doppler Measurements and Calculations MV E max perry 129.2 cm/sec MV dec time 0.27 sec Ao V2 max 114.0 cm/sec Ao max PG 5.2 mmHg Ao max PG (full) 2.5 mmHg LV V1 max PG 2.7 mmHg LV V1 max 82.0 cm/sec MR max perry 512.5 cm/sec MR max PG 105.1 mmHg TR max perry 293.2 cm/sec
--- NOTE | 2016-09-01 15:33 | Progress Note ---
Medicine Progress Note Date & Time of Visit: Sep 01, 2016 at 15:25. Subjective Patient seen and examined. Feels breathing has improved. Abdomen feels less distended. Family present at bedside and notes less exertional dyspnea. Objective Last 8 Hrs Date Time Temp Pulse Resp B/P Pulse Ox O2 Delivery O2 Flow Rate FiO2 09/01/16 15:24 36.8 80 20 110/68 91 Room Air 09/01/16 12:00 0 Room Air 09/01/16 11:59 36.8 72 20 115/73 90 Room Air 09/01/16 08:01 36.8 75 16 121/75 92 Room Air 09/01/16 08:00 0 Room Air Physical Exam: General-awake; alert; NAD Eyes-EOMI; no scleral icterus Neck-no stridor; trachea midline Lungs-diminished breath sounds at the bases Heart-irregularly irregular Abdomen-soft; NTND; nBS Extremities-trace LE edema Neuro-no focal deficits Laboratory Results: Last 24 Hours Test 08/31/16 16:00 08/31/16 16:05 08/31/16 21:53 08/31/16 22:00 Creatine Kinase MB Ratio Creatine Kinase MB 1.5 ng/ml 1.5 ng/ml Troponin I < 0.015 ng/ml 0.029 ng/ml Test 09/01/16 06:55 White Blood Count 4.42 K/uL Red Blood Count 3.14 M/uL Hemoglobin 9.7 g/dL Hematocrit 30.6 % Mean Corpuscular Volume 97.5 fL Mean Corpuscular Hemoglobin 30.9 pg Mean Corpuscular Hemoglobin Concent 31.7 g/dl RDW Standard Deviation 49.9 fL RDW Coefficient of Variation 14.0 % Platelet Count 117 K/uL Mean Platelet Volume 10.9 fL Prothrombin Time 23.8 SECONDS Prothromb Time International Ratio 2.2 Sodium Level 142 mmol/L Potassium Level 3.9 mmol/L Chloride Level 105 mmol/L Carbon Dioxide Level 29 mmol/L Anion Gap 8.0 mmol/L Blood Urea Nitrogen 16 mg/dl Creatinine 0.88 mg/dl Est Creatinine Clear Calc Drug Dose 42.1 ml/min Estimated GFR () 68.5 Estimated GFR (Non- 59.1 BUN/Creatinine Ratio 18.3 Random Glucose 83 mg/dl Calcium Level 8.9 mg/dl Assessment & Plan ACUTE DIASTOLIC CHF - Cardiology consulted - TTE with pEF, diastolic dysfunction and moderate MR - diuresis with IV Lasix - I/Os, daily standing weights, low Na+ diet ATRIAL FIBRILLATION - rate controlled on metoprolol - continue Coumadin HTN - BP controlled, continue metoprolol CKD STAGE III - baseline creat ~ 0.9 - monitor closely with diuresis DVT PROPHYLAXIS - on Coumadin with therapeutic INR CODE STATUS - Patient is a full code Anticipate discharge home. PT/OT evaluations. Consultants: Cardiology Procedures: TTE * Normal LV chamber size and wall thickness. * Normal LV systolic function, EF 55-60%. * No segmental left ventricular wall motion abnormalities are noted. * Left atrial enlargement suggesting diastolic dysfunction. * Moderate mitral regurgitation. * Moderate tricuspid regurgitation. * Moderate left atrial enlargement. * Mild right atrial enlargement. Current Inpatient Medications: Current Inpatient Medications Medications (Trade) Dose Ordered Sig/Deirdre Route Start Time Stop Time Status Last Admin Dose Admin Ioversol (Optiray 320) 100 ml UD PRN IV 08/31/16 10:15 09/04/16 10:14 Acetaminophen (Tylenol Tab) 650 mg Q4H PRN PO 08/31/16 14:15 09/30/16 14:14 09/01/16 10:54 650 MG Ondansetron HCl (Zofran Inj) 4 mg Q6H PRN IV 08/31/16 14:15 09/30/16 14:14 Nitroglycerin (Nitrostat Tab) 0.4 mg UD PRN SL 08/31/16 14:15 09/30/16 14:14 Levothyroxine Sodium (Synthroid Tab) 100 mcg DAILYBB PO 09/01/16 06:00 10/01/16 05:59 09/01/16 05:59 100 MCG Metoprolol Tartrate (Lopressor Tab) 50 mg BID PO 08/31/16 21:00 09/30/16 20:59 09/01/16 08:03 50 MG Multivitamins/ Minerals (Multivitamin W/ Minerals Tab) 1 tab BID PO 08/31/16 21:00 09/30/16 20:59 09/01/16 08:03 1 TAB Warfarin Sodium (Coumadin Tab) 3 mg SuMoTuWeThSa@1600 PO 08/31/16 16:00 09/30/16 15:59 4/17/17 16:59 3 MG Warfarin Sodium (Coumadin Tab) 1.5 mg Fr@1600 PO 09/04/16 16:00 10/04/16 15:59
[2016-09-01] MEDS: WARFARIN SOD 3 MG TAB PO SCH (16:09)
[2016-09-01] MEDS ORDERED: MAGNESIUM HYDROXIDE SUSP 30 ML UDC PO STA (23:42)
[2016-09-02 03:54] VITALS: BP 100/62; PULSE 98; TEMP 36.6; O2SAT 90
[2016-09-02] MEDS: LEVOTHYROXINE 100 MCG TAB PO SCH (04:21)
[2016-09-02] MEDS: ACETAMINOPHEN 325 MG TAB PO PRN (04:21)
[2016-09-02 06:18] LABS: HEMATOCRIT 31.7 % (37-47); MEAN CELL VOLUME 99.1 fL (80-100); MEAN CORPUSCULAR HEMOGLOBIN 30.9 pg (25-34); MEAN CORPUSCULAR HGB CONC 31.2 g/dl (32-36); PLATELET COUNT 120 K/uL (130-400); WHITE BLOOD COUNT 4.32 K/uL (4.8-10.8)
[2016-09-02 06:30] LABS: INR 1.9 (0.9-1.1); PROTHROMBIN TIME (PATIENT) 21.2 SECONDS (9.0-12.0)
[2016-09-02 06:56] LABS: BUN/CREATININE RATIO 18.4 (10-20); CREATININE 0.91 mg/dl (0.60-1.20); POTASSIUM 3.7 mmol/L (3.5-5.1)
[2016-09-02 07:29] VITALS: BP 106/67; PULSE 91; TEMP 36.9; O2SAT 90
[2016-09-02] MEDS: METOPROLOL TARTRATE 50 MG TAB PO SCH (07:37)
[2016-09-02] MEDS: CEROVITE ADV FORMULA TAB PO SCH (07:37)
[2016-09-02 08:00] VITALS: O2SAT 0
--- NOTE | 2016-09-02 09:47 | Cardiology Follow-Up ---
Subjective General Date of Service: Sep 02, 2016. Chief Complaint: Abdominal bloating Pt evaluation today including: conversation w/ patient, physical exam, chart review, lab review, review of studies, review of inpatient medication list History of Present Illness Patient seen and examined. Feeling considerably better. Minimal abdominal bloating remains Cough resolved. Peripheral edema resolved. No orthopnea or PND last night. No chest pain. No palpitations. No lightheadedness, dizziness, or near syncope. I/O's negative 2,615 mL's overall September 01, 2016 TTE Interpretation Summary ([facility], Dr. Morejon): Normal LV chamber size and wall thickness. Normal LV systolic function, EF 55-60%. No segmental left ventricular wall motion abnormalities are noted. Left atrial enlargement suggesting diastolic dysfunction. Moderate mitral regurgitation. Moderate tricuspid regurgitation. Moderate left atrial enlargement. Mild right atrial enlargement. Allergies Coded Allergies: No Known Allergies (Verified , 08/31/16) Social History Smoking Status: Never Smoker Hx Tobacco Use In Past Year?: No Hx Alcohol Use - Type And Amou: No Hx Substance Use - Type And Am: No Physical Exam Vital Signs Last Vital Signs Documentation Date Time Temp Pulse Resp B/P Pulse Ox O2 Delivery O2 Flow Rate FiO2 09/02/16 08:00 0 Room Air 09/02/16 07:29 36.9 91 20 106/67 Physical Exam Constitutional: Level of Distress: NAD Psychiatric: Mental Status: active & alert Orientation: to time, to place, to person Memory: recent memory normal, remote memory normal Head: normocephalic, atraumatic Eyes: Pupils: PERRLA Neck: pertinent finding (Normal JVP) Lungs: Respiratory effort: no dyspnea Auscultation: breath sounds normal, no wheezing, no rales/crackles, no rhonchi Cardiovascular: Heart Auscultation: no rubs, II/ NURIS, irregular rate rhythm Extremities: no cyanosis, no edema, no clubbing Neurologic: Cranial Nerves: grossly intact Assessment and Plan Assessment and Plan Presentation due to difficultly urinating with history and physical examination findings demonstrating new onset acute decompensated congestive heart failure currently felt to be secondary to prior self discontinuation of diuretic therapy in the setting of chronic atrial fibrillation, diastolic dysfunction, and valvular heart disease - moderate mitral regurgitation observed in October 2015. Volume status is now near euvolemic after two doses of 20 mg IV furosemide RECOMMENDATIONS/PLAN: No Maxzide. Start oral furosemide 20 mg five days per week along with 10 mEq oral potassium chloride CHF tools reviewed. Continue rate control with metoprolol tartrate and anticoagulation with Coumadin. Outpatient cardiology follow-up at [facility] in 1-2 weeks. Office aware, will contact patient. Laboratory Results Last 24 Hours Test 09/02/16 05:47 White Blood Count 4.32 K/uL Red Blood Count 3.20 M/uL Hemoglobin 9.9 g/dL Hematocrit 31.7 % Mean Corpuscular Volume 99.1 fL Mean Corpuscular Hemoglobin 30.9 pg Mean Corpuscular Hemoglobin Concent 31.2 g/dl RDW Standard Deviation 49.8 fL RDW Coefficient of Variation 13.8 % Platelet Count 120 K/uL Mean Platelet Volume 11.0 fL Prothrombin Time 21.2 SECONDS Prothromb Time International Ratio 1.9 Sodium Level 141 mmol/L Potassium Level 3.7 mmol/L Chloride Level 104 mmol/L Carbon Dioxide Level 29 mmol/L Anion Gap 8.0 mmol/L Blood Urea Nitrogen 17 mg/dl Creatinine 0.91 mg/dl Est Creatinine Clear Calc Drug Dose 40.7 ml/min Estimated GFR () 65.7 Estimated GFR (Non- 56.7 BUN/Creatinine Ratio 18.4 Random Glucose 107 mg/dl Calcium Level 9.0 mg/dl
[2016-09-02] MEDS ORDERED: POTA10CA28 PO (09:58)
[2016-09-02] MEDS ORDERED: LSX20 PO (09:58)
[2016-09-02] MEDS ORDERED: FUROSEMIDE 20 MG TAB PO SCH (10:00)
[2016-09-02] MEDS ORDERED: POTASSIUM CHLORIDE 10 MEQ TABCR PO SCH (10:00)
--- NOTE | 2016-09-02 10:09 | Discharge Instructions ---
Discharge Instructions Date of Service Sep 02, 2016. Admission Reason for Admission: Chf (Congestive Heart Failure) Discharge Discharge Diagnosis / Problem: Congestive heart failure Discharge Goals Goal(s): Improve disease control, Diagnostic testing Activity Recommendations Activity Limitations: resume your previous activity . Instructions / Follow-Up Instructions / Follow-Up Please follow up with Cardiology Deya Martinez on September 08 at 2:45pm at [facility]. Please keep your follow up appointment with Family Medicine Dr. Vizcaino on September 14 at 10:30am. PLEASE STOP TAKING HCTZ/TRIAMTERENE. THIS HAS BEEN REPLACED WITH LASIX. YOU WILL TAKE LASIX ONCE A DAY IN THE MORNING WEDNESDAY THROUGH WEDNESDAY. PLEASE START TAKING YOUR PRESCRIPTION TOMORROW 09/03 YOU RECEIVED THIS MEDICINE TODAY IN THE HOSPITAL. Current Hospital Diet Patient's current hospital diet: AHA Diet (Heart Healthy), Low Sodium Diet (2gm Na) Discharge Diet Recommended Diet: AHA Diet (Heart Healthy), Low Sodium Diet (2gm Na) Pending Studies Studies pending at discharge: no Medical Emergencies . Who to Call and When: Medical Emergencies: If at any time you feel your situation is an emergency, please call 911 immediately. . Non-Emergent Contact Non-Emergency issues call your: Primary Care Provider . . "Provider Documentation" section prepared by Sadie Shin. . VTE Core Measure Inpt VTE Proph given/why not?: Warfarin (Coumadin)
[2016-09-02 10:34] VITALS: BP 106/67; PULSE 91; TEMP 36.9; O2SAT 0
--- NOTE | 2016-09-02 17:20 | Discharge Summary ---
Discharge Summary Date of Service Sep 02, 2016. Discharge Summary Admission Date: Aug 31, 2016 at 14:08 Discharge Date: Sep 02, 2016 Discharge Disposition: Home with services Principal Diagnosis: Diastolic heart failure exacerbation Procedures: TTE * Normal LV chamber size and wall thickness. * Normal LV systolic function, EF 55-60%. * No segmental left ventricular wall motion abnormalities are noted. * Left atrial enlargement suggesting diastolic dysfunction. * Moderate mitral regurgitation. * Moderate tricuspid regurgitation. * Moderate left atrial enlargement. * Mild right atrial enlargement. Consultations: Cardiology Medication Reconciliation New Medications: Furosemide (Furosemide) 20 Mg Tab 20 MG PO UD for 30 Days, #30 TAB 1 tablet furosemide by mouth Wednesday through Wednesday (No furosemide on Saturdays or Sundays) Potassium Chloride (Micro-K Ext Rel) 10 Meq Capcr 10 MEQ PO UD for 30 Days, #30 CAP 1 tablet potassium by mouth Wednesday through Wednesday (No potassium on Saturdays or Sundays) Continued Medications: Levothyroxine Sodium (Levothyroxine Sodium) 100 Mcg Tab 100 MCG PO QAM, #30 Metoprolol Tartrate (Metoprolol Tartrate) 50 Mg Tab 50 MG PO BID, #60 Ocuvite Preservision (Ocuvite Preservision) 1 Tab Tab 1 TAB PO BID, TAB Simvastatin (Zocor) 40 Mg Tab 20 MG PO QPM, TAB patient not taking Warfarin Sodium (Warfarin Sodium) 3 Mg Tab 3 MG PO UD, #30 all days except wednesday Warfarin Sodium (Coumadin) 5 Mg Tab 1.5 MG PO UD, TAB fridays Discontinued Medications: Triamterene/Hctz (Triamterene/Hctz 37.5-25MG) 1 Tab Tab 1 TAB PO DAILY for 30 Days, #30 TAB 5 Refills patient not taking Admission Information HPI (per Admitting provider): 85 year old female who presents to the ER with abdominal distention, trouble urination, and shortness of breath. Patient reports her symptoms started about one week ago. She reports increasing abdominal distention, lower extremity edema , and shortness of breath. She reports orthopnea. Feels like the shortness of breath is coming from her abdomen pushing up into her chest. She has chronic lower extremity edema which she feels is a little worse than normal. No chest pain or palpitations. She denies lightheadedness, dizziness, diaphoresis, and syncope. No cough or sputum production. She reports difficulty urinating. She feels like she needs to go often however is only dribbling. She denies dysuria. No fever or chills. She denies abdominal pain, nausea, vomiting, or diarrhea. In the ER, patient's vitals are stable. In the ER, CXR shows small BL pleural effusions and mild congestive change. CT abd/pelvis did not show any acute abdominal findings but did show the effusions and congestion noted on CXR. Patient was given Lasix 20mg IV. Physical Exam (per Admitting): General Appearance: + mild distress (dyspnea with minimal exertion ) Head: normocephalic Eyes: normal inspection ENT: hearing grossly normal Neck: supple, no JVD Respiratory/Chest: no respiratory distress, + crackles (right base) Cardiovascular: + irregularly irregular (rate controlled), + pertinent finding (trace edema BLLE ) Abdomen/GI: normal bowel sounds, non tender, soft, + distended Extremities/Musculoskelatal: normal inspection, no calf tenderness Neurologic/Psych: no motor/sensory deficits, alert, normal mood/affect, oriented x 3 Skin: normal color, warm/dry Hospital Course Patient was admitted with acute diastolic heart failure exacerbation. Cardiology was consulted. Cardiac enzymes and EKG were negative for ischemia. TTE showed pEF, diastolic dysfunction and moderate MR. Patient was diuresed with IV Lasix and clinically improved. HCTZ/Triamterene was discontinued and changed to Lasix upon discharge. Patient was continued on the remainder of her medications. Patient deemed stable for discharge with Cardiology and Family Medicine follow up. PE on discharge: General- awake; alert; NAD Eyes- EOMI; no scleral icterus Neck- no stridor; trachea midline Lungs- CTA bilaterally; no wheezes/crackles Heart- irregularly irregular Abdomen- soft; NTND; nBS Back- no gross abnormalities Extremities- no c/c/e; no deformity Neuro- no focal deficits Skin- no appreciable rash . Total time spent on discharge = This includes examination of the patient, discharge planning, medication reconciliation, and communication with other providers. Discharge Instructions Discharge Instructions Date of Service Sep 02, 2016. Admission Reason for Admission: Chf (Congestive Heart Failure) Discharge Discharge Diagnosis / Problem: Congestive heart failure Discharge Goals Goal(s): Improve disease control, Diagnostic testing Activity Recommendations Activity Limitations: resume your previous activity . Instructions / Follow-Up Instructions / Follow-Up Please follow up with Cardiology Deya Martinez on September 08 at 2:45pm at [facility]. Please keep your follow up appointment with Family Medicine Dr. Vizcaino on September 14 at 10:30am. PLEASE STOP TAKING HCTZ/TRIAMTERENE. THIS HAS BEEN REPLACED WITH LASIX. YOU WILL TAKE LASIX ONCE A DAY IN THE MORNING WEDNESDAY THROUGH WEDNESDAY. PLEASE START TAKING YOUR PRESCRIPTION TOMORROW 09/03 YOU RECEIVED THIS MEDICINE TODAY IN THE HOSPITAL. Current Hospital Diet Patient's current hospital diet: AHA Diet (Heart Healthy), Low Sodium Diet (2gm Na) Discharge Diet Recommended Diet: AHA Diet (Heart Healthy), Low Sodium Diet (2gm Na) Pending Studies Studies pending at discharge: no Medical Emergencies . Who to Call and When: Medical Emergencies: If at any time you feel your situation is an emergency, please call 911 immediately. . Non-Emergent Contact Non-Emergency issues call your: Primary Care Provider Additional Copies To Deya Martinez PA-C Rozick, Mark S., M.D.
[2016-09-04] MEDS ORDERED: WARFARIN SOD 0.5 MG TAB PO SCH (16:00)
== END 2016-09-02 11:15 | disposition home health service (06) | DRG 291 ==
LOC: ENRESERVDT → ENRESERVTM → C.EDB 09:34 → C.2T 14:08
PROVIDERS: ADMIT Hospitalist; ATTEND Internal Medicine
DX: I13.0 Hypertensive heart and chronic kidney disease with heart failure and stage 1 through stage 4 chronic kidney disease, or unspecified chronic kidney disease (principal); I50.33 Acute on chronic diastolic (congestive) heart failure; C92.91 Myeloid leukemia, unspecified in remission; I48.2 Chronic atrial fibrillation; J45.909 Unspecified asthma, uncomplicated; N18.3 Chronic kidney disease, stage 3 (moderate); K21.9 Gastro-esophageal reflux disease without esophagitis; M81.0 Age-related osteoporosis without current pathological fracture; I08.1 Rheumatic disorders of both mitral and tricuspid valves; Z79.01 Long term (current) use of anticoagulants; E03.9 Hypothyroidism, unspecified; H40.9 Unspecified glaucoma; H35.30 Unspecified macular degeneration

== ENCOUNTER 2017-02-06 04:18 | Emergency (ER) | payer OTHER ==
[~2017-02-06] VITALS: Ht 167.6 cm; Wt 62.7 kg
[~2017-02-06 04:18] MED LIST changes: -ALBU1AER9 INH; -ALEN70TA4 PO; -ASPI81TA28 PO; +LSX20 PO; -MECL1TAB42 PO; +POTA10CA28 PO; -SIMV20TA5 PO; +SIMV40TA4 PO; -TRIATAB3 PO; +WARF-285 PO; +WARF5TAB90 PO
[2017-02-06 04:27] VITALS: Ht 167.6 cm; Wt 62.7 kg
[2017-02-06 04:36] VITALS: O2SAT 97
[2017-02-06 04:42] LABS: BASO % 0.5 %; BASO ABS # 0.03 K/uL (0-0.2); COMPLETE YES; EOS % 1.9 %; IG% 0.2 %; LYMPH % 45.9 %; LYMPH ABS # 2.63 K/uL (1.2-3.4); MEAN CELL VOLUME 98.4 fL (80-100); MEAN CORPUSCULAR HEMOGLOBIN 30.1 pg (25-34); MEAN CORPUSCULAR HGB CONC 30.5 g/dl (32-36); MEAN PLATELET VOLUME 10.5 fL (7.4-10.4); MONO % 15.5 %; PLATELET COUNT 126 K/uL (130-400); RED BLOOD COUNT 3.76 M/uL (4.2-5.4); WHITE BLOOD COUNT 5.73 K/uL (4.8-10.8)
[2017-02-06 04:58] LABS: INR 2.4 (0.9-1.1); PARTIAL THROMBOPLASTIN RATIO 1.6; PROTHROMBIN TIME (PATIENT) 27.1 SECONDS (9.0-12.0)
[2017-02-06 05:03] LABS: ALT/SGPT 14 U/L (12-78); AST/SGOT 15 U/L (15-37); BLOOD UREA NITROGEN 19 mg/dl (7-18); BUN/CREATININE RATIO 20.9 (10-20); CALCIUM 8.9 mg/dl (8.5-10.1); CARBON DIOXIDE 29 mmol/L (21-32); CHLORIDE 104 mmol/L (98-107); GLUCOSE 99 mg/dl (70-99); POTASSIUM 3.7 mmol/L (3.5-5.1); SODIUM 140 mmol/L (136-145)
[2017-02-06 05:09] LABS: ALKALINE PHOSPHATASE 98 U/L (45-117); CKMB/CK RATIO 1.9 (0-3.0)
[2017-02-06] MEDS ORDERED: LEVO75TA5 PO (05:33)
[2017-02-06] MEDS ORDERED: RANI150T2 PO (05:33)
[2017-02-06] MEDS ORDERED: METO50TA17 PO (05:34)
[2017-02-06] MEDS ORDERED: LPR50X PO (05:34)
[2017-02-06] MEDS ORDERED: FSM70 PO (05:41)
[2017-02-06] MEDS ORDERED: LSX20 PO (05:41)
[2017-02-06] MEDS ORDERED: SIMV-151 PO (05:41)
[2017-02-06] MEDS ORDERED: FURO-85 PO (05:41)
[2017-02-06] MEDS ORDERED: POTA1CAP2 PO (05:41)
[2017-02-06] MEDS ORDERED: POTA-74 PO (05:42)
[2017-02-06] MEDS ORDERED: MULT60CA PO (05:44)
[2017-02-06] MEDS ORDERED: DOCU100C31 PO (05:44)
[2017-02-06] MEDS ORDERED: CYAN100T6 PO (05:44)
[2017-02-06] MEDS ORDERED: VNTHFA/IN INH (05:45)
[2017-02-06] MEDS ORDERED: WARF-285 PO (05:48)
[2017-02-06] MEDS ORDERED: WARF3TAB PO (05:48)
[2017-02-06] MEDS ORDERED: MECL1TAB42 PO (05:49)
[2017-02-06] MEDS ORDERED: LDXO60 TOP (05:52)
[2017-02-06] MEDS ORDERED: CYCL0.052 OPB (05:52)
--- NOTE | 2017-02-06 06:23 | EMERGENCY ROOM VISIT NOTE ---
History Report prepared by Dora: Rajat Carmen Under the Supervision of: Dr. Jermaine Patel D.O. First contact with patient: 04:33 Chief Complaint: CHEST PAIN Stated Complaint: CHEST PAIN Nursing Triage Summary: pt states at 0200 she woke up to go to the bathroom and was just sitting and developed cp on left side intensity comes and goes, pmhx of afib. History of Present Illness The patient is an 86 year old female who presents to the Emergency Room with complaints of intermittent chest pain beginning 2.5 hours ago. The patient states she was getting out of bed when her chest began to hurt. She reports her pain comes in one minute episodes. The patient notes she also developed a headache. She describes her discomfort as a nagging/grabbing sensation. The patient denies all other symptoms including fevers, cough, and shortness of breath. She also denies a history of an NE. Source of History: patient Onset: 2.5 hours ago Position: chest (left) Quality: other (nagging/grabbing) Timing: intermittent Associated Symptoms: + headache, No fevers, No cough, No SOB Review of Systems See HPI for pertinent positives & negatives. A total of 10 systems reviewed and were otherwise negative. Past Medical & Surgical Medical Problems: (1) AML (acute myeloid leukemia) in remission (2) Anxiety (3) Asthma, mild intermittent (4) Atrial fibrillation (5) CKD (chronic kidney disease), stage III (6) GERD (gastroesophageal reflux disease) (7) HLD (hyperlipidemia) (8) HTN (hypertension) (9) Hypothyroidism (10) Osteoporosis Surgical Problems: (1) History of cataract surgery (2) S/P cholecystectomy Family History FH: CAD (coronary artery disease) Social History Smoking Status: Never Smoker Alcohol Use: none Marital Status: Housing Status: lives with significant other Occupation Status: retired Current/Historical Medications Scheduled Alendronate Sodium (Alendronate Sodium), 70 MG PO WK Cyanocobalamin (Vitamin B12 100 Mcg), 100 MCG PO DAILY Cyclosporine (Ophth) (Restasis), 1 DROP OPB BID Docusate Sodium (Docusate Sodium), 100 MG PO BID Furosemide (Furosemide), 40 MG PO DAILY Levothyroxine Sodium (Levothyroxine Sodium), 75 MCG PO QAM Metoprolol Tartrate (Metoprolol Tartrate), 75 MG PO QAM Metoprolol Tartrate (Metoprolol Tartrate), 50 MG PO QPM Multiple Vitamins W/ Minerals (Preservision Areds 2), 1 CAP PO BID Potassium Chloride (Potassium Chloride Er), 20 MEQ PO QAM Potassium Chloride (Potassium Chloride Er), 10 MEQ PO QPM Ranitidine HCl (Ranitidine HCl), 150 MG PO BID Simvastatin (Simvastatin), 20 MG PO HS Warfarin Sodium (Warfarin Sodium), 3 MG PO 4XWK Warfarin Sodium (Coumadin), 1.5 MG PO 3XWK Scheduled PRN Albuterol Hfa (Ventolin Hfa), 2 PUFFS INH Q4 PRN for Wheezing Fluocinonide (Lidex 0.05% Oint), 1 APPLN TOP BID PRN for affected skin Furosemide (Lasix), 20 MG PO DAILY PRN for swelling Meclizine Hcl (Meclizine Hcl), 1 TAB PO TID PRN for Dizziness or Vertigo Allergies Coded Allergies: No Known Allergies (Verified , 02/06/17) Physical Exam Vital Signs Date Time Temp Pulse Resp B/P (MAP) Pulse Ox O2 Delivery O2 Flow Rate FiO2 02/06/17 05:20 75 18 130/66 96 Room Air 02/06/17 04:36 97 Room Air 02/06/17 04:36 97 Room Air 02/06/17 04:30 77 02/06/17 04:27 70 22 117/83 97 Room Air Physical Exam CONSTITUTIONAL/VITAL SIGNS: Reviewed / noted above. GENERAL: Non-toxic in appearance. INTEGUMENTARY: Warm, dry, and [place]. HEAD: Normocephalic. EYES: without scleral icterus or trauma. ENT/OROPHARYNX: clear and moist. LYMPHADENOPATHY/NECK: Is supple without lymphadenopathy or meningismus. RESPIRATORY: Lungs clear and equal. CARDIOVASCULAR: Regular rate and rhythm. GI/ABDOMEN: Soft and nontender. No organomegaly or pulsatile mass. No rebound or guarding. Normal bowel sounds. EXTREMITIES: Warm and well perfused. BACK: No CVA tenderness. NEUROLOGICAL: Intact without focal deficits. PSYCHIATRIC: normal affect. MUSCULOSKELETAL: Normally developed with good muscle tone. Medical Decision & Procedures ER Provider Diagnostic Interpretation: X ray results and stated below per my interpretation and radiology interpretation. One view chest: no acute disease, no pneumothorax, no pneumonia. Laboratory Results 02/06/17 04:30 Red Blood Count 3.76, Mean Corpuscular Volume 98.4, Mean Corpuscular Hemoglobin 30.1, Mean Corpuscular Hemoglobin Concent 30.5, Mean Platelet Volume 10.5, Neutrophils (%) (Auto) 36.0, Lymphocytes (%) (Auto) 45.9, Monocytes (%) (Auto) 15.5, Eosinophils (%) (Auto) 1.9, Basophils (%) (Auto) 0.5, Neutrophils # (Auto ) 2.06, Lymphocytes # (Auto) 2.63, Monocytes # (Auto) 0.89, Eosinophils # (Auto ) 0.11, Basophils # (Auto) 0.03 02/06/17 04:30 Test 02/06/17 04:30 White Blood Count 5.73 K/uL (4.8-10.8) Red Blood Count 3.76 M/uL (4.2-5.4) Hemoglobin 11.3 g/dL (12.0-16.0) Hematocrit 37.0 % (37-47) Mean Corpuscular Volume 98.4 fL (80-100) Mean Corpuscular Hemoglobin 30.1 pg (25-34) Mean Corpuscular Hemoglobin Concent 30.5 g/dl (32-36) Platelet Count 126 K/uL (130-400) Mean Platelet Volume 10.5 fL (7.4-10.4) Neutrophils (%) (Auto) 36.0 % Lymphocytes (%) (Auto) 45.9 % Monocytes (%) (Auto) 15.5 % Eosinophils (%) (Auto) 1.9 % Basophils (%) (Auto) 0.5 % Neutrophils # (Auto) 2.06 K/uL (1.4-6.5) Lymphocytes # (Auto) 2.63 K/uL (1.2-3.4) Monocytes # (Auto) 0.89 K/uL (0.11-0.59) Eosinophils # (Auto) 0.11 K/uL (0-0.5) Basophils # (Auto) 0.03 K/uL (0-0.2) RDW Standard Deviation 48.5 fL (36.4-46.3) RDW Coefficient of Variation 13.4 % (11.5-14.5) Immature Granulocyte % (Auto) 0.2 % Immature Granulocyte # (Auto) 0.01 K/uL (0.00-0.02) Prothrombin Time 27.1 SECONDS (9.0-12.0) Prothromb Time International Ratio 2.4 (0.9-1.1) Activated Partial Thromboplast Time 41.7 SECONDS (21.0-31.0) Partial Thromboplastin Ratio 1.6 Anion Gap 7.0 mmol/L (3-11) Est Creatinine Clear Calc Drug Dose 40.4 ml/min Estimated GFR () 66.2 Estimated GFR (Non- 57.1 BUN/Creatinine Ratio 20.9 (10-20) Calcium Level 8.9 mg/dl (8.5-10.1) Total Bilirubin 0.5 mg/dl (0.2-1) Direct Bilirubin 0.1 mg/dl (0-0.2) Aspartate Amino Transf (AST/SGOT) 15 U/L (15-37) Alanine Aminotransferase (ALT/SGPT) 14 U/L (12-78) Alkaline Phosphatase 98 U/L (45-117) Total Creatine Kinase 58 U/L (26-192) Creatine Kinase MB 1.1 ng/ml (0.5-3.6) Creatine Kinase MB Ratio 1.9 (0-3.0) Troponin I < 0.015 ng/ml (0-0.045) Total Protein 7.2 gm/dl (6.4-8.2) Albumin 3.2 gm/dl (3.4-5.0) Lipase 417 U/L (73-393) Laboratory results as stated above per my review. ECG Indication: chest pain Rate (beats per minute): 72 Rhythm: atrial fibrillation Findings: no acute ischemic change, no ectopy ED Course 0435: Previous medical records were reviewed. The patient was evaluated in room B09. A complete history and physical examination was performed. 0624: On reevaluation, the patient is resting. I discussed the results and findings with the patient. She verbalized agreement of the treatment plan. The patient was discharged home. Medical Decision Differentials considered include acute myocardial infarction, acute coronary syndrome, myocarditis, pericarditis, pericardial effusions /tamponade, esophageal perforation, thoracic aortic dissection, pulmonary embolism, pneumonia, pneumothorax, pancreatitis, shingles, acute cholecystitis, and perforated abdominal viscus. This is a 86-year-old female who presents to the ED with a chief complaint of left-sided chest pain that started around 2 AM. The patient describes it as a grabbing pain that comes and goes. She states that last for about a minute and then goes away. She chronically takes Coumadin for A. fib. The patient has normal vital signs. Atrial fibrillation is noted on her twelve-lead EKG. This is chronic. CBC is normal, INR is 2.1, complete metabolic panel was unremarkable, troponin was negative. Chest x-ray does not show any similar change from previous. The bilateral effusions that were noted previously seemed to be improving. There is no acute pulmonary process. The patient was told results the test. She will be discharged. Medication Reconcilliation Current Medication List: was personally reviewed by me Blood Pressure Screening Patient's blood pressure: Normal blood pressure Blood pressure disposition: Did not require urgent referral Impression Primary Impression: Substernal precordial chest pain Scribe Attestation The scribe's documentation has been prepared under my direction and personally reviewed by me in its entirety. I confirm that the note above accurately reflects all work, treatment, procedures, and medical decision making performed by me. Departure Information Dispostion Home / Self-Care Referrals Marino Vizcaino M.D. (PCP) Forms HOME CARE DOCUMENTATION FORM, IMPORTANT VISIT INFORMATION Patient Instructions ED Chest Pain NonCardiac, My [facility] Additional Instructions Follow-up with your doctor for further care and evaluation in 1-2 days. Return to the emergency department for worsening or new symptoms or any concerns. You have been examined and treated today on an emergency basis only. This is not a substitute for, or an effort to provide, complete comprehensive medical care. It is impossible to recognize and treat all injuries or illnesses in a single emergency department visit. It is therefore important that you follow up closely with your doctor. Call as soon as possible for an appointment.
[2017-02-06 07:17] VITALS: BP 112/69; PULSE 75; O2SAT 95
--- NOTE | 2017-02-06 07:37 | DIAGNOSTIC IMAGING REPORT ---
CHEST ONE VIEW PORTABLE HISTORY: Evaluate Fever/Sepsis COMPARISON: Chest 08/31/2016. FINDINGS: Improved aeration within the lung bases with resolution of the small pleural effusions. The heart is normal in size. The upper lung zones remain clear. No pneumothorax. No evidence for pulmonary edema. 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 IMPRESSION: No acute process. Electronically signed by: Matthias Su M.D. 02/06/2017 7:36 AM Dictated Date/Time: 02/06/2017 7:34 AM
== END 2017-02-06 07:19 | disposition home or self-care (01) ==
LOC: C.EDB 04:19
DX: R07.2 Precordial pain (principal); R51 Headache; I12.9 Hypertensive chronic kidney disease with stage 1 through stage 4 chronic kidney disease, or unspecified chronic kidney disease; N18.3 Chronic kidney disease, stage 3 (moderate); E03.9 Hypothyroidism, unspecified; C92.91 Myeloid leukemia, unspecified in remission; I48.91 Unspecified atrial fibrillation; Z79.01 Long term (current) use of anticoagulants

== ENCOUNTER 2017-05-03 09:35 | Emergency (ER) | payer OTHER ==
[~2017-05-03] VITALS: Ht 167.6 cm; Wt 62.0 kg
[~2017-05-03 09:35] MED LIST changes: +CYAN100T6 PO; +CYCL0.052 OPB; +DOCU100C31 PO; +FSM70 PO; +FURO-85 PO; +LDXO60 TOP; -LEVO100T7 PO; +LEVO75TA5 PO; +LPR50X PO; +MECL1TAB42 PO; -MULT-190 PO; +MULT60CA PO; +POTA-74 PO; -POTA10CA28 PO; +POTA1CAP2 PO; +RANI150T2 PO; +SIMV-151 PO; -SIMV40TA4 PO; +VNTHFA/IN INH; +WARF3TAB PO; -WARF5TAB90 PO
[2017-05-03 09:39] VITALS: TEMP 36.7; Ht 167.6 cm; Wt 62.0 kg
[2017-05-03] MEDS ORDERED: TRAMADOL HCL 50 MG TAB PO STA (10:10)
--- NOTE | 2017-05-03 10:11 | EMERGENCY ROOM VISIT NOTE ---
History Report prepared by Dora: Leonor Staley Under the Supervision of: Dr. Benedicto Kelley M.D. First contact with patient: 09:49 Chief Complaint: FOOT PAIN Stated Complaint: RT FOOT PAIN - WARM TO TOUCH History of Present Illness The patient is an 86 year old white female with a past medical history of acute myeloid leukemia, atrial fibrillation, chronic kidney disease, GERD, hyperlipidemia, hypertension, hypothyroidism, osteoporosis, and arthritis who presents to the ED with a cc of sharp right foot pain beginning last night. She currently rates her discomfort as a 10/10 in severity. The patient denies any recent fall or trauma. She states that she tried Tylenol for her pain, but denies any relief of her symptoms. The patient reports being on Coumadin. The patient's daughter reports that the patient has had cellulitis in the past. Source of History: patient, family (daughter) Onset: last night Position: foot (right) Symptom Intensity: 10/10 Quality: sharp Timing: other (persistent) Review of Systems See HPI for pertinent positives and negatives. A total of ten systems were reviewed and were otherwise negative. Past Medical & Surgical Medical Problems: (1) AML (acute myeloid leukemia) in remission (2) Anxiety (3) Asthma, mild intermittent (4) Atrial fibrillation (5) CKD (chronic kidney disease), stage III (6) GERD (gastroesophageal reflux disease) (7) HLD (hyperlipidemia) (8) HTN (hypertension) (9) Hypothyroidism (10) Osteoporosis Surgical Problems: (1) History of cataract surgery (2) S/P cholecystectomy Family History FH: CAD (coronary artery disease) Social History Smoking Status: Never Smoker Alcohol Use: none Marital Status: Housing Status: lives with significant other Occupation Status: retired Current/Historical Medications Scheduled Alendronate Sodium (Alendronate Sodium), 70 MG PO WK Cephalexin (Keflex), 1 CAP PO QID Cyanocobalamin (Vitamin B12 100 Mcg), 100 MCG PO DAILY Cyclosporine (Ophth) (Restasis), 1 DROP OPB BID Docusate Sodium (Docusate Sodium), 100 MG PO BID Furosemide (Furosemide), 40 MG PO DAILY Levothyroxine Sodium (Levothyroxine Sodium), 75 MCG PO QAM Metoprolol Tartrate (Metoprolol Tartrate), 75 MG PO QAM Metoprolol Tartrate (Metoprolol Tartrate), 50 MG PO QPM Multiple Vitamins W/ Minerals (Preservision Areds 2), 1 CAP PO BID Potassium Chloride (Potassium Chloride Er), 20 MEQ PO QAM Potassium Chloride (Potassium Chloride Er), 10 MEQ PO QPM Ranitidine HCl (Ranitidine HCl), 150 MG PO BID Simvastatin (Simvastatin), 20 MG PO HS Triamcinolone Acet (Aristocort 0.1%), 1 APPL TOP BID Warfarin Sod (Coumadin), 3 MG PO DAILY@1600 Scheduled PRN Albuterol Hfa (Ventolin Hfa), 2 PUFFS INH Q4 PRN for Wheezing Fluocinonide (Lidex 0.05% Oint), 1 APPLN TOP BID PRN for affected skin Furosemide (Lasix), 20 MG PO DAILY PRN for swelling Meclizine Hcl (Meclizine Hcl), 1 TAB PO TID PRN for Dizziness or Vertigo Allergies Coded Allergies: No Known Allergies (Verified , 02/06/17) Physical Exam Vital Signs Date Time Temp Pulse Resp B/P (MAP) Pulse Ox O2 Delivery O2 Flow Rate FiO2 05/03/17 12:08 88 16 115/65 98 05/03/17 10:56 85 16 113/80 98 Room Air 05/03/17 09:39 36.7 89 18 115/73 93 Room Air Physical Exam GENERAL: Awake, alert, well-appearing, NAD HENT: Normocephalic, atraumatic. EYES: Normal conjunctiva. Sclera non-icteric. NECK: Supple. No nuchal rigidity. FROM. RESPIRATORY: CTAB, no rhonchi, wheezing, crackles CARDIAC: Irregularly irregular, no MRG ABDOMEN: Soft, NTND, BS+ MSK: No chest wall TTP, no LE edema, small 2 cm area of erythema over the dorsum of right foot with tenderness, good flexion and extension at the ankle, sensory and motor intact to SP/DP and tib nerves. DP pulse present, compartments are soft. NEURO: GCS 15, CN 2-12 intact, moves all 4s on command SKIN: No rash or jaundice noted. Medical Decision & Procedures ER Provider Diagnostic Interpretation: X-ray: Per my interpretation, radiologist review. R FOOT MIN 3 VIEWS ROUTINE CLINICAL HISTORY: Right foot pain COMPARISON: None. DISCUSSION: No acute fractures are visualized. No erosive or destructive changes are delineated. IMPRESSION: 1. No evidence of fracture 2. No erosive or destructive changes are visualized on conventional radiographic imaging Electronically signed by: Danilo Albert M.D. 05/03/2017 10:30 AM Dictated Date/Time: 05/03/2017 10:29 AM Medications Administered Medications (Trade) Dose Ordered Sig/Deirdre Route Start Time Stop Time Status Last Admin Dose Admin Tramadol HCl (Ultram Tab) 25 mg NOW STAT PO 05/03/17 10:10 05/03/17 10:12 DC 05/03/17 10:54 25 MG Cephalexin Monohydrate (Keflex Cap) 500 mg NOW ONCE PO 05/03/17 10:15 05/03/17 10:16 DC 05/03/17 10:54 500 MG ED Course 1003: The patient was evaluated in room C12B. A complete history and physical exam was performed. 1144: I reevaluated the patient and she is resting comfortably. I discussed the test results with her and I discussed the treatment plan. She verbalized complete understanding and agreement. She is ready to go home. Medical Decision The patient is an 86 year old white female with a past medical history of acute myeloid leukemia, atrial fibrillation, chronic kidney disease, GERD, hyperlipidemia, hypertension, hypothyroidism, osteoporosis, and arthritis who presents to the ED with a cc of sharp right foot pain beginning last night Differential diagnosis: Etiologies such as cellulitis, abscess, MRSA infection, DVT, necrotizing fasciitis, dermatitis, drug eruption, strain, sprain, as well as others were entertained. Patient was seen and evaluated the bedside. Patient was complaining of some right foot pain. Patient did have some very small elements of erythema and pain over the dorsum of the foot. Patient had soft compartments and was otherwise neuro intact. Patient denied any trauma. Patient did have a plain film that was completed that was negative. Patient was given Keflex and was given the same for home. Patient was told that she had tried other over-the- counter type medications and treatments that may help remedy her pain. I did discuss that she should watch for any sort of rash that may develop given that her pain is not consistent with the exam. Given this I do not believe that the patient has any sort of compartment syndrome, fracture, or dislocation. Patient may have a little bit of cellulitis for which she was given antibiotics. Patient was told to follow-up with her PCP. Patient was deemed suitable for outpatient follow-up treatment. Patient was given strict follow-up , discharge, and return precautions. All questions were answered. Patient was deemed suitable for outpatient follow-up at this time. Patient agreed with the plan of care and was safely discharged home. Medication Reconcilliation Current Medication List: was personally reviewed by me Blood Pressure Screening Patient's blood pressure: Normal blood pressure Blood pressure disposition: Did not require urgent referral Impression Primary Impression: Foot pain Additional Impression: Cellulitis Scribe Attestation The scribe's documentation has been prepared under my direction and personally reviewed by me in its entirety. I confirm that the note above accurately reflects all work, treatment, procedures, and medical decision making performed by me. Departure Information Dispostion Home / Self-Care Prescriptions Cephalexin (KEFLEX) 500 Mg Cap 1 CAP PO QID for 7 Days, #28 CAP Prov: Benedicto Kelley M.D. 05/03/17 Referrals Marino Vizcaino M.D. (PCP) Forms HOME CARE DOCUMENTATION FORM, IMPORTANT VISIT INFORMATION Patient Instructions Arthritis Foot, Cellulitis - [facility], My [facility] Additional Instructions Please return to the emergency department if you have worsening or recurrent symptoms not amenable to at-home treatment. Please call for a follow-up appointment with her primary care physician. Please take your medications as prescribed. If you have other concerns and/or complaints please feel free to also call your primary care physician's office or return the ED for further evaluation, management, and treatment. You may take tylenol 650 mg every 6 hours as needed for pain. Consider warm soaks to the right foot. He may apply ice as needed. He may also try things like BenGay or icy hot. Please take your antibiotics as prescribed. Take your medications as prescribed. If taking an antibiotic consider taking a probiotic and/or eating yogurt, but at the least, please take with food as it can cause upset stomach. You have been examined and treated today on an emergency basis only. This is not a substitute for, or an effort to provide, complete comprehensive medical care. It is impossible to recognize and treat all injuries or illnesses in a single emergency department visit. It is therefore important that you follow up closely with [facility], your PCP, and/or your specialist(s). Call as soon as possible for an appointment. Thank you for your time and consideration. I look forward to speaking with you again soon. Please don't hesitate to call us if you have any questions. Problem Qualifiers Primary Impression: Foot pain Laterality: right Qualified Codes: M79.671 - Pain in right foot Additional Impression: Cellulitis Site of cellulitis: extremity Site of cellulitis of extremity: lower extremity Laterality: right Qualified Codes: L03.115 - Cellulitis of right lower limb
[2017-05-03] MEDS ORDERED: CEPHALEXIN MONOHYDRATE 250 MG CAP PO ONE (10:15)
--- NOTE | 2017-05-03 10:31 | DIAGNOSTIC IMAGING REPORT ---
R FOOT MIN 3 VIEWS ROUTINE CLINICAL HISTORY: Right foot pain COMPARISON: None. DISCUSSION: No acute fractures are visualized. No erosive or destructive changes are delineated. IMPRESSION: 1. No evidence of fracture 2. No erosive or destructive changes are visualized on conventional radiographic imaging Electronically signed by: Danilo Albert M.D. 05/03/2017 10:30 AM Dictated Date/Time: 05/03/2017 10:29 AM
[2017-05-03] MEDS ORDERED: TRMCR130WC TOP (11:29)
[2017-05-03] MEDS ORDERED: CMD3 PO (11:29)
[2017-05-03] MEDS ORDERED: CEPH-571 PO (11:34)
[2017-05-03 12:08] VITALS: BP 115/65; PULSE 88; O2SAT 98
== END 2017-05-03 12:09 | disposition home or self-care (01) ==
LOC: C.EDB 09:36 → C.EDC 12:09
DX: L03.115 Cellulitis of right lower limb (principal); M81.0 Age-related osteoporosis without current pathological fracture; J45.909 Unspecified asthma, uncomplicated; I48.91 Unspecified atrial fibrillation; N18.3 Chronic kidney disease, stage 3 (moderate); I12.9 Hypertensive chronic kidney disease with stage 1 through stage 4 chronic kidney disease, or unspecified chronic kidney disease; E78.5 Hyperlipidemia, unspecified; E03.9 Hypothyroidism, unspecified; K21.9 Gastro-esophageal reflux disease without esophagitis; Z79.02 Long term (current) use of antithrombotics/antiplatelets; Z82.49 Family history of ischemic heart disease and other diseases of the circulatory system

== ENCOUNTER 2017-06-11 16:31 | Emergency (ER) | payer OTHER ==
[~2017-06-11] VITALS: Ht 167.6 cm; Wt 62.0 kg
[~2017-06-11 16:31] MED LIST changes: +CMD3 PO; +TRMCR130WC TOP; -WARF-285 PO; -WARF3TAB PO
[2017-06-11 16:34] VITALS: TEMP 37.1; Ht 167.6 cm; Wt 62.0 kg
--- NOTE | 2017-06-11 16:50 | EMERGENCY ROOM VISIT NOTE ---
History Report prepared by Dora: Zulay Leija Under the Supervision of: Dr. Tani Rudolph M.D. First contact with patient: 16:38 Chief Complaint: FOOT PAIN Stated Complaint: RT FOOT PAIN History of Present Illness The patient is a 86 year old female who presents to the Emergency Room with complaints of constant right foot pain beginning a couple days ago. The patient states her pain radiates to the back of her right calf. The patient was at [facility] and was told to come to the ED for an ultrasound to rule out DVT. She denies nausea and any chest pain, fever or shortness of breath. The patient denies any recent falls. The patient is on Lasix. The patient has been in remission for leukemia for 15 years. Source of History: patient Onset: a couple days ago Position: leg (right) Quality: other (radiates to calf) Timing: constant Associated Symptoms: + nausea, No fevers, No chest pain, No SOB Review of Systems See HPI for pertinent positives and negatives. A total of ten systems were reviewed and were otherwise negative.m Past Medical & Surgical Medical Problems: (1) AML (acute myeloid leukemia) in remission (2) Anxiety (3) Asthma, mild intermittent (4) Atrial fibrillation (5) CKD (chronic kidney disease), stage III (6) GERD (gastroesophageal reflux disease) (7) HLD (hyperlipidemia) (8) HTN (hypertension) (9) Hypothyroidism (10) Osteoporosis Surgical Problems: (1) History of cataract surgery (2) S/P cholecystectomy Family History FH: CAD (coronary artery disease) Social History Smoking Status: Never Smoker Alcohol Use: none Marital Status: Housing Status: lives with significant other Occupation Status: retired Current/Historical Medications Scheduled Alendronate Sodium (Alendronate Sodium), 70 MG PO WK Clindamycin Hcl (Cleocin), 450 MG PO TID Cyanocobalamin (Vitamin B12 100 Mcg), 100 MCG PO DAILY Cyclosporine (Ophth) (Restasis), 1 DROP OPB BID Docusate Sodium (Docusate Sodium), 100 MG PO BID Furosemide (Furosemide), 40 MG PO DAILY Levothyroxine Sodium (Levothyroxine Sodium), 75 MCG PO QAM Metoprolol Tartrate (Metoprolol Tartrate), 75 MG PO QAM Metoprolol Tartrate (Metoprolol Tartrate), 50 MG PO QPM Multiple Vitamins W/ Minerals (Preservision Areds 2), 1 CAP PO BID Potassium Chloride (Potassium Chloride Er), 20 MEQ PO QAM Potassium Chloride (Potassium Chloride Er), 10 MEQ PO QPM Ranitidine HCl (Ranitidine HCl), 150 MG PO BID Simvastatin (Simvastatin), 20 MG PO HS Triamcinolone Acet (Aristocort 0.1%), 1 APPL TOP BID Warfarin Sod (Coumadin), 3 MG PO DAILY@1600 Scheduled PRN Albuterol Hfa (Ventolin Hfa), 2 PUFFS INH Q4 PRN for Wheezing Fluocinonide (Lidex 0.05% Oint), 1 APPLN TOP BID PRN for affected skin Furosemide (Lasix), 20 MG PO DAILY PRN for swelling Meclizine Hcl (Meclizine Hcl), 1 TAB PO TID PRN for Dizziness or Vertigo Allergies Coded Allergies: No Known Allergies (Verified , 02/06/17) Physical Exam Vital Signs Date Time Temp Pulse Resp B/P (MAP) Pulse Ox O2 Delivery O2 Flow Rate FiO2 06/11/17 18:25 90 16 125/76 96 06/11/17 16:34 37.1 95 16 127/79 95 Room Air Physical Exam Physical Exam GENERAL: She is oriented to person, place, and time. She appears well- developed and well-nourished. She does not appear distressed. ____ HENT: Exam performed. Head: Normocephalic and atraumatic. Right Ear: External ear normal. No mastoid tenderness. Left Ear: External ear normal. No mastoid tenderness. Mouth/Throat: The oropharynx is clear and moist. No trismus in the jaw. No dental abscesses or uvula swelling. No oropharyngeal exudate or tonsillar abscesses. ____ EYES: Conjunctivae and EOM are normal. Pupils are equal, round, and reactive to light. Right eye exhibits no discharge. Left eye exhibits no discharge. No scleral icterus. ____ NECK: Normal range of motion. Neck supple. No JVD present. No spinous process tenderness present. No carotid bruit present. No rigidity. No tracheal deviation and normal range of motion present. No Brudzinski's sign and no Kernig 's sign noted. ____ CV: Normal rate, regular rhythm, normal heart sounds and intact distal pulses. There is no peripheral edema. Palpable radial pulses bue. ____ PULM/CHEST: Effort normal and breath sounds normal. No respiratory distress. No stridor. She has no wheezes. She has no rales. Chest Wall: She exhibits no tenderness. ____ ABD: The abdomen is soft. Bowel sounds are normal. She has no distension. No mass is present. There is no tenderness. There is no rebound, no guarding, no Luo's sign and no tenderness at McBurney's point. Rovsig negative MUSC/SKEL: Right lower extremity: foot has circular area of warm and erythematous, consistent with cellulitis, no bullae, no versicles, Nikolsky negative, full ROM of all bilateral joints including knees, ankles, foot and toes, very mild tenderness to palpation in right distal calf, no pain on palpation of right post thigh or right popliteal area Left lower extremity within normal limits. LYMPH: No cervical adenopathy. ____ NEURO: She is alert and oriented to person, place, and time. She has normal strength. No cranial nerve deficit or sensory deficit. Coordination and gait normal. GCS eye subscore is 4. GCS verbal subscore is 5. GCS motor subscore is 6. cerbellar tests wnl. ____ SKIN: Skin is warm and dry. SHe is not diaphoretic. ____ PSYCH: She has a normal mood and affect. Her behavior is normal. Judgment and thought content normal. ____ Medical Decision & Procedures ER Provider Diagnostic Interpretation: Radiology results as stated below per my review and radiologist interpretation: RIGHT LOWER EXTREMITY VENOUS DOPPLER FINDINGS: There is normal compressibility, flow, and augmentation within the right lower extremity deep venous system. IMPRESSION: No DVT within the right lower extremity Electronically signed by: Matthias Su M.D. ED Course 1641: The patient was evaluated in room B2. A complete history and physical exam was performed. 1811: Vitals stable, ultrasound negative for DVT. Discharged with prescription antibiotic for cellulitis. Follow up with PCP in a few days. 1827: DISCHARGE - Plan of care discussed with patient and questions answered. The patient was given both verbal and printed discharge instructions. The patient verbalized understanding and ability to comply. The patient is to seek outpatient follow up as noted in the discharge instructions. The patient verbalized understanding and ability to comply. The patient is discharged in stable condition. The patient was instructed to return for worsening symptoms. Medical Decision Vitals stable, ultrasound negative for DVT. Discharged with prescription antibiotic for cellulitis. Follow up with PCP in a few days Medication Reconcilliation Current Medication List: was personally reviewed by me Blood Pressure Screening Patient's blood pressure: Normal blood pressure Impression Primary Impression: Cellulitis Scribe Attestation The scribe's documentation has been prepared under my direction and personally reviewed by me in its entirety. I confirm that the note above accurately reflects all work, treatment, procedures, and medical decision making performed by me. The chart was completed utilizing [employer] Speech voice recognition software. Grammatical errors, random word insertions, pronoun errors, and incomplete sentences are an occasional consequence of this system due to software limitations, ambient noise, and hardware issues. Any formal questions or concerns about the content, text, or information contained within the body of this dictation should be directly addressed to the physician for clarification. Departure Information Dispostion Home / Self-Care Prescriptions Clindamycin Hcl (CLEOCIN) 150 Mg Cap 450 MG PO TID for 7 Days, #63 CAP Prov: Tani Rudolph M.D. 06/11/17 Referrals No Doctor, Assigned (PCP) Forms HOME CARE DOCUMENTATION FORM, IMPORTANT VISIT INFORMATION Patient Instructions Cellulitis - [facility], [facility] Additional Instructions Take the antibiotic on a full stomach. Take probiotics and eat yogurt while on the antibiotic. Return to the emergency department if he developed fever greater than 100.4, increasing pain, increasing redness, your symptoms do not get better.
--- NOTE | 2017-06-11 17:53 | DIAGNOSTIC IMAGING REPORT ---
RIGHT LOWER EXTREMITY VENOUS DOPPLER HISTORY: Right foot pain. COMPARISON STUDY: None. FINDINGS: There is normal compressibility, flow, and augmentation within the right lower extremity deep venous system. IMPRESSION: No DVT within the right lower extremity Electronically signed by: Matthias Su M.D. 06/11/2017 5:51 PM Dictated Date/Time: 06/11/2017 5:51 PM
[2017-06-11] MEDS ORDERED: CLIN150C PO (18:07)
[2017-06-11 18:25] VITALS: BP 125/76; PULSE 90; O2SAT 96
== END 2017-06-11 18:27 | disposition home or self-care (01) ==
LOC: C.EDB 16:32
DX: L03.115 Cellulitis of right lower limb (principal); Z79.899 Other long term (current) drug therapy; Z85.6 Personal history of leukemia; F41.9 Anxiety disorder, unspecified; J45.20 Mild intermittent asthma, uncomplicated; I48.91 Unspecified atrial fibrillation; N18.3 Chronic kidney disease, stage 3 (moderate); I12.9 Hypertensive chronic kidney disease with stage 1 through stage 4 chronic kidney disease, or unspecified chronic kidney disease; K21.9 Gastro-esophageal reflux disease without esophagitis; E78.5 Hyperlipidemia, unspecified; E03.9 Hypothyroidism, unspecified; M81.0 Age-related osteoporosis without current pathological fracture; Z90.49 Acquired absence of other specified parts of digestive tract; Z98.49 Cataract extraction status, unspecified eye; Z82.49 Family history of ischemic heart disease and other diseases of the circulatory system; Z79.01 Long term (current) use of anticoagulants